=== PATIENT | male | born 1950 | race Caucasian/White ===

== ENCOUNTER 2016-12-31 04:38 | Inpatient (IN) | payer MEDICARE ==
[2016-12-31] VITALS (19 sets, daily range): BP systolic 86–125; BP diastolic 53–87; PULSE 82–106; RESP 18–32; TEMP 98.1–99.3; O2SAT 98–100
[~2016-12-31] VITALS: Ht 193 cm; Wt 59.9 kg
[~2016-12-31 04:38] MED LIST: EPSOM SALTS XX; MUPI2%T TOP
[2016-12-31] MEDS ORDERED: SODIUM CHLOR 0.9% 1000 ML INJ 1,000 ML IV ONE ×4 (04:53→17:45)
[2016-12-31] MEDS ORDERED: SODIUM CHLOR 0.9% 1000 ML INJ 800 ML IV ONE (04:53)
[2016-12-31] MEDS ORDERED: AZITHROMYCIN 250 MG TAB PO ONE (05:15)
[2016-12-31] MEDS ORDERED: cefTRIAXone INJ 1,000 MG in SODIUM CHLORIDE 0.9% INJ 100 ML IV ONE (05:15)
[2016-12-31 05:19] LABS: AUTOMATED NEUTROPHIL # 21.9 TH/MM3 (1.8-7.7); BASOPHIL % 0.2 % (0.0-2.0); HEMATOCRIT 24.3 % (39.0-51.0); HEMO FLAGS DIFF FINAL; LYMPH % 2.6 % (9.0-44.0); LYMPHOCYTE # 0.6 TH/MM3 (1.0-4.8); MEAN CELL VOLUME 92.5 FL (80.0-100.0); MEAN CORPUSCULAR HEMOGLOBIN 32.3 PG (27.0-34.0); MEAN CORPUSCULAR HGB CONC 34.9 % (32.0-36.0); MONO % 4.1 % (0.0-8.0); NEUT % 93.1 % (16.0-70.0); PLATELET COUNT 286 TH/MM3 (150-450); RED BLOOD COUNT 2.63 MIL/MM3 (4.50-5.90); RED CELL DISTRIBUTION WIDTH 13.8 % (11.6-17.2); WHITE BLOOD COUNT 23.6 TH/MM3 (4.0-11.0)
--- NOTE | 2016-12-31 05:28 | PD ---
HPI Chief Complaint: Respiratory Distress Time Seen by Provider: 04:48 Travel History International Travel<30 days: No Contact w/Intl Traveler<30days: No Traveled to known affect area: No History of Present Illness HPI The patient is 66 years old. He comes from the [facility]. Normally his mental status is reported to be a GCS of 14. Today he answers questions slowly yes or no however cannot describe his complaints in much detail. Most of the history of present illness is provided by EMS who obtained it from a nurse somewhat unfamiliar with the patient. Patient has been short of breath for a few days. His mentation is slightly worse than normal. In the ER he complains of pain in the region of the lower back. EMS notes an O2 sat of 89% on room air upon arrival. He is on oxygen 24 7 secondary to COPD. EMS further reports of blood sugar 116 heart rate of 100 and a BP of 122/84. En route to the ER he refused nebs and nasal cannula. His past medical history includes peripheral vascular disease, hyperlipidemia, COPD. PFSH Past Medical History Cardiovascular Problems: Yes (pvd) High Cholesterol: Yes COPD: Yes Diminished Hearing: No Endocrine: No GERD: Yes Genitourinary: No Immune Disorder: No Medical other: Yes (foot drop on the right) Musculoskeletal: No Neurologic: No Psychiatric: No Reproductive: No Respiratory: No Past Surgical History Body Medical Devices: MAY HAVE PINS IN LEFT ANKLE Other Surgery: Yes (HERNIA) Social History Alcohol Use: Yes (3 OR 4 SHOTS A WEEK) Tobacco Use: Yes (3/4 PPD) Substance Use: No Allergies-Medications (Allergen,Severity, Reaction): Coded Allergies: No Known Allergies (Verified Allergy, Mild, 07/23/08) Reported Meds & Prescriptions Reported Meds & Active Scripts Active Reported Office Medication (Miscellaneous Medication) Misc 2 Liter NASAL DAILY PRN Methylprednisolone Sod Succinate Inj (Methylprednisolone Sodium Succinate) 125 Mg Inj 125 Mg IM ONCE Enema Zxgjp-Du-Dna (Sodium Phosphates) 1 Cecile Cecile Citroma Liq (Magnesium Citrate) 300 Ml Liq 300 Ml PO ONCE Qc Gentle Laxative (Bisacodyl) 10 Mg Sup Ativan (Lorazepam) 1 Mg Tab 1 Mg PO DAILY PRN Lorazepam 0.5 Mg Tab 0.5 Mg PO Q6H PRN Albuterol Neb (Albuterol Sulfate) 2.5 Mg/3 Ml Neb 2.5 Mg NEB QID NEB Famotidine 20 Mg Tab 20 Mg PO BID Docusate Sodium 100 Mg Cap 100 Mg PO BID Advair Diskus Inh (Fluticasone-Salmeterol Inh) 100-50 Mcg/Blist Aer 2 Puff INH BID Rinse mouth after use. Rosuvastatin (Rosuvastatin Calcium) 20 Mg Tab 20 Mg PO DAILY Clopidogrel (Clopidogrel Bisulfate) 75 Mg Tab 75 Mg PO DAILY Aspirin Low Dose (Aspirin) 81 Mg Chew 81 Mg CHEW DAILY Amlodipine (Amlodipine Besylate) 5 Mg Tab 5 Mg PO DAILY [Epsom Salts] XX LAST NIGHT Review of Systems ROS Limitations: Clinical Condition Physical Exam Narrative GENERAL: 66-year-old male cachectic mstw-zy-yaewkrci anxiety SKIN: Warm and dry. Ecchymosis about the inferior R thigh. HEAD: Atraumatic. Normocephalic. EYES: Pupils equal and round. No scleral icterus. No injection or drainage. ENT: No nasal bleeding or discharge. Mucous membranes pink and moist. NECK: Trachea midline. No JVD. CARDIOVASCULAR: Regular rate and rhythm. No murmur appreciated. RESPIRATORY: Diminished lung sounds in all sanders. GASTROINTESTINAL: Abdomen soft, non-tender, nondistended. Hepatic and splenic margins not palpable. MUSCULOSKELETAL: No obvious deformities. No clubbing. No cyanosis. No edema. NEUROLOGICAL: Moves all extremities appropriately. Very slow to respond to questions. Alert and oriented to himself. Cranial nerves appear symmetric. PSYCHIATRIC: Flat affect. Data Data Last Documented VS Vital Signs Date Time Temp Pulse Resp B/P Pulse Ox O2 Delivery O2 Flow Rate FiO2 12/31/16 05:01 94 Nasal Cannula 3 12/31/16 04:44 105 26 123/59 Orders Complete Blood Count With Diff (12/31/16 04:53) Comprehensive Metabolic Panel (12/31/16 04:53) Prothrombin Time / Inr (Pt) (12/31/16 04:53) Act Partial Throm Time (Ptt) (12/31/16 04:53) Lactic Acid Sepsis Protocol (12/31/16 04:53) Urinalysis - C+S If Indicated (12/31/16 04:53) Blood Culture (12/31/16 04:53) Chest, Single Ap (12/31/16 04:53) Blood Glucose (12/31/16 04:53) Ecg Monitoring (12/31/16 04:53) Iv Access Insert/Monitor (12/31/16 04:53) Oximetry (12/31/16 04:53) Oxygen Administration (12/31/16 04:53) Sodium Chlor 0.9% 1000 Ml Inj (Ns 1000 M (12/31/16 04:53) Sodium Chlor 0.9% 1000 Ml Inj (Ns 1000 M (12/31/16 04:53) Ceftriaxone Inj (Rocephin Inj) (12/31/16 05:15) Azithromycin (Zithromax) (12/31/16 05:15) Warming [place] / Warming Syst PRN (12/31/16 05:06) Arterial Blood Gas (Abg) (12/31/16 ) Us Leg Venous Doppler Bilat (12/31/16 ) Sodium Chlor 0.9% 1000 Ml Inj (Ns 1000 M (12/31/16 06:00) Urine Culture (12/31/16 06:00) Resp Bipap / Cpap Non Invas Vt (12/31/16 06:30) Insert Temp Sensing Gonzalez Cath (12/31/16 06:41) Piperacil-Tazo 4.5 Gm Premix (Zosyn 4.5 (12/31/16 07:00) Admit Order (Ed Use Only) (12/31/16 06:52) Labs Laboratory Tests Test 12/31/16 12/31/16 12/31/16 05:05 06:00 06:03 White Blood Count 23.6 TH/MM3 Red Blood Count 2.63 MIL/MM3 Hemoglobin 8.5 GM/DL Hematocrit 24.3 % Mean Corpuscular Volume 92.5 FL Mean Corpuscular Hemoglobin 32.3 PG Mean Corpuscular Hemoglobin 34.9 % Concent Red Cell Distribution Width 13.8 % Platelet Count 286 TH/MM3 Mean Platelet Volume 7.8 FL Neutrophils (%) (Auto) 93.1 % Lymphocytes (%) (Auto) 2.6 % Monocytes (%) (Auto) 4.1 % Eosinophils (%) (Auto) 0.0 % Basophils (%) (Auto) 0.2 % Neutrophils # (Auto) 21.9 TH/MM3 Lymphocytes # (Auto) 0.6 TH/MM3 Monocytes # (Auto) 1.0 TH/MM3 Eosinophils # (Auto) 0.0 TH/MM3 Basophils # (Auto) 0.0 TH/MM3 CBC Comment DIFF FINAL Differential Comment Prothrombin Time 10.0 SEC Prothromb Time International 0.9 RATIO Ratio Activated Partial 27.0 SEC Thromboplast Time Sodium Level 130 MEQ/L Potassium Level 4.5 MEQ/L Chloride Level 91 MEQ/L Carbon Dioxide Level 35.0 MEQ/L Anion Gap 4 MEQ/L Blood Urea Nitrogen 13 MG/DL Creatinine 0.38 MG/DL Estimat Glomerular Filtration 229 ML/MIN Rate Random Glucose 120 MG/DL Lactic Acid Level 1.1 mmol/L Calcium Level 8.9 MG/DL Total Bilirubin 1.4 MG/DL Aspartate Amino Transf 33 U/L (AST/SGOT) Alanine Aminotransferase 48 U/L (ALT/SGPT) Alkaline Phosphatase 57 U/L Total Protein 7.5 GM/DL Albumin 3.2 GM/DL Urine Color YELLOW Urine Turbidity HAZY Urine pH 5.5 Urine Specific [place] 1.015 Urine Protein TRACE mg/dL Urine Glucose (UA) NEG mg/dL Urine Ketones NEG mg/dL Urine Occult Blood MOD Urine Nitrite NEG Urine Bilirubin NEG Urine Urobilinogen LESS THAN 2.0 MG/DL Urine Leukocyte Esterase NEG Urine RBC 9 /hpf Urine WBC 2 /hpf Urine Amorphous Sediment RARE Urine Bacteria RARE /hpf Urine Mucus FEW /lpf Microscopic Urinalysis Comment CATH-CULTURE IND Blood Gas Puncture Site RT RADIAL Blood Gas Patient Temperature 98.6 Blood Gas HCO3 30 mmol/L Blood Gas Base Excess 3.6 mmol/L Blood Gas Oxygen Saturation 92 % Arterial Blood pH 7.26 Arterial Blood Partial 69 mmHg Pressure CO2 Arterial Blood Partial 81 mmHG Pressure O2 Arterial Blood Oxygen Content 11.4 Vol % Arterial Blood 2.5 % Carboxyhemoglobin Arterial Blood Methemoglobin 1.5 % Blood Gas Hemoglobin 8.8 G/DL Oxygen Delivery Device NASAL CANNULA Blood Gas Liter Flow 3 L/M MDM Medical Decision Making Medical Screen Exam Complete: Yes Emergency Medical Condition: Yes Medical Record Reviewed: Yes Differential Diagnosis Pneumonia, COPD exacerbation, anemia, electrolyte imbalance, sepsis, severe sepsis Narrative Course CBC & BMP Diagram 12/31/16 05:05 Neutrophils 93% Lactic acid 1.1 LFTs essentially unremarkable AB.26 / 69 / 30 BE 3.6, ABG pO81 EKG: sinus rate 102, normal axis, normal interals Last 24 hours Impressions Chest X-Ray 12/31/16 6152 Signed Impressions: Service Date/Time: December 05:15 - CONCLUSION: Left base consolidation. Luis Armando Alanis MD Antibiotics initiated. 2 L crystalloid started. Warming blanket started. Gonzalez placed. Patient has a pneumonia. There is a respiratory acidosis with a PCO2 of 69 the ABG PO2 was 81 on 3 L nasal cannula. Admission to supervisor finishing department service. D/w Dr Durán. BiPAP started. Critical Care Narrative Aggregate critical care time was 35 minutes. Time to perform other separately billable procedures was not included in the critical care time. My time did not include minutes spent treating any other patients simultaneously or on activities that did not directly contribute to the patient's treatment. The services I provided to this patient were to treat and/or prevent clinically significant deterioration that could result in: Septic shock, multiorgan failure, respiratory arrest I provided critical care services requiring my management, as noted below: Chart data review, documentation time, medication orders and management, vital sign assessments/reviewing monitor data, ordering and reviewing lab tests, ordering and interpreting/reviewing x-rays and diagnostic studies, care of the patient and discussion of the patient with the admitting physicians. Sepsis Criteria SIRS Criteria (2 or more): Temp > 100.9 or < 96.8, Heart rate over 90, WBC > 99080, < 4000 or > 10% bands Sepsis Criteria (SIRS+source): Infect source susp/known Diagnosis Primary Impression: Sepsis due to pneumonia Additional Impressions: Anemia Qualified Code: D64.89 - Anemia due to other cause, not classified Hypercarbia Admitting Information Admitting Physician Requests: Admit Иван Berg MD Dec 31, 2016 05:27
[2016-12-31 05:30] LABS: INTERNATIONAL NORMALIZED RATIO 0.9 RATIO
[2016-12-31 05:33] LABS: ANION GAP 4 MEQ/L (5-15); AST (GOT) 33 U/L (15-37); BLOOD UREA NITROGEN 13 MG/DL (7-18); CHLORIDE 91 MEQ/L (98-107); GLOMERULAR FILTRATION RATE 229 ML/MIN (>89); POTASSIUM 4.5 MEQ/L (3.5-5.1); SODIUM (NA) 130 MEQ/L (136-145)
[2016-12-31 05:36] LABS: ALKALINE PHOSPHATASE 57 U/L (45-117); ALT (GPT) 48 U/L (12-78); TOTAL BILIRUBIN ADULT 1.4 MG/DL (0.2-1.0)
[2016-12-31] MEDS ORDERED: METH125I2 IM (05:43)
[2016-12-31] MEDS ORDERED: ASPI81CH37 CHEW (05:43)
[2016-12-31] MEDS ORDERED: ALBU0.08 NEB (05:43)
[2016-12-31] MEDS ORDERED: AMLO5TAB2 PO (05:43)
[2016-12-31] MEDS ORDERED: LORA-373 PO (05:43)
[2016-12-31] MEDS ORDERED: DOCU100C PO (05:43)
[2016-12-31] MEDS ORDERED: LORA-474 PO (05:43)
[2016-12-31] MEDS ORDERED: FAMO20TA2 PO (05:43)
[2016-12-31] MEDS ORDERED: SODIENE9 (05:43)
[2016-12-31] MEDS ORDERED: CITRSOL4 PO (05:43)
[2016-12-31] MEDS ORDERED: ROSU1TAB8 PO (05:43)
[2016-12-31] MEDS ORDERED: ADVA100A INH (05:43)
[2016-12-31] MEDS ORDERED: [UNRECOGNIZED DRUG - OTHER] (05:43)
[2016-12-31] MEDS ORDERED: CLOP75TA PO (05:43)
[2016-12-31] MEDS ORDERED: OFFICE MEDICATION NASAL (05:44)
--- NOTE | 2016-12-31 05:56 | RADRPT ---
EXAM DATE/TIME: 12/31/2016 05:15 [facility] COMPARISON: No previous studies available for comparison. INDICATIONS : Shortness of breath. MEDICAL HISTORY : None. SURGICAL HISTORY : None. ENCOUNTER: Initial ACUITY: 1 day PAIN SCORE: Non-responsive. LOCATION: Bilateral chest FINDINGS: The heart size is normal. There is increased density at the left base. The right lung is clear. CONCLUSION: Left base consolidation. Luis Armando Alanis MD on December 31, 2016 at 5:54 Board Certified Radiologist. This report was verified electronically.
[2016-12-31 06:14] LABS: BACTERIA, URINE RARE /hpf; BLOOD, URINE MOD (NEG); COMMENT (UR) CATH-CULTURE IND; CULTURE IF INDICATED CATH CULTURE IND; GLUCOSE,URINE NEG (NEG); KETONE, URINE NEG (NEG); MUCUS URINE FEW /lpf (OCC); NITRITE,URINE NEG (NEG); PH, URINE 5.5 (5.0-8.5); URINE COLOR YELLOW (YELLW/STRAW)
[2016-12-31 06:16] LABS: BLOOD GAS BASE EXCESS 3.6 mmol/L (-2-2); BLOOD GAS CARBOXYHEMOGLOBIN 2.5 % (0-4); BLOOD GAS HCO3 30 mmol/L (22-26); BLOOD GAS METHEMOGLOBIN 1.5 % (0-2); BLOOD GAS O2 HGB SATURATION 92 % (90-100); BLOOD GAS OXYGEN CONTENT 11.4 Vol % (12.0-20.0); BLOOD GAS PCO2 69 mmHg (38-42); BLOOD GAS PO2 81 mmHG (61-120); BLOOD GAS TOTAL HGB 8.8 G/DL (12.0-16.0); TEMP CORR TO 98.6
[2016-12-31 06:17] LABS: CRITICAL VALUE YES; DRAW SITE RT RADIAL; LITER FLOW 3 L/M; NUMBER OF ARTERIAL PUNCTURES 2; OXYGEN DEVICE NASAL CANNULA; STAT YES; ULNAR PULSE PRESENT
[2016-12-31] MEDS ORDERED: PIPERACIL-TAZO 4.5 GM PREMIX 100 ML IV ONE (07:00)
--- NOTE | 2016-12-31 07:21 | HHI.HP ---
[facility] Service Critical Care Medicine Primary Care Physician Ryan Madsen MD Admission Diagnosis Sepsis (PNA), Hypercarbia, Anemia Diagnosis: (1) Anemia Diagnosis: Principal (2) Hypercarbia Diagnosis: Principal (3) Sepsis due to pneumonia Diagnosis: Principal (4) HCAP (healthcare-associated pneumonia) Diagnosis: Principal (5) COPD (chronic obstructive pulmonary disease) Diagnosis: Principal (6) Hypertension Diagnosis: Principal (7) Dyslipidemia Diagnosis: Principal (8) MCFP prescription benzodiazepine use Diagnosis: Principal (9) Peripheral vascular disease Diagnosis: Principal (10) Gastroesophageal reflux disease Diagnosis: Principal (11) Normocytic anemia Diagnosis: Principal (12) Hyponatremia Diagnosis: Principal (13) Hyperglycemia Diagnosis: Principal (14) Leukocytosis Diagnosis: Principal (15) Constipation Diagnosis: Principal (16) Hypothermia Diagnosis: Principal Chief Complaint: Shortness of breath/transfer from [facility] Travel History International Travel<30 Days: No Contact w/Intl Traveler <30 Da: No Traveled to Known Affected Are: No Sepsis Criteria SIRS Criteria (2 or more): RR > 20 or PaCO2 < 32, WBC > 98082, < 4000 or > 10 % bands Sepsis Criteria (SIRS+source): Infect source susp/known History of Present Illness 66 years old male. Date of admission 12/31/2016. Resident of [facility] nursing [facility]. Past medical history includes COPD/oxygen dependent, hypertension, peripheral vascular disease and dyslipidemia. He presents to [facility] with a history of shortness of breath times several days and decreasing mental status. Per ED physician, his mentation is slightly worse than normal. EMS further reports of blood sugar 116 heart rate of 100 and a BP of 122/84. En route to the ER he refused nebs and nasal cannula. At this facility, retaining CO2. Chest x-ray reveals left lower lobe infiltrate. Started on nasal cannula 3 L. Received bronchodilator therapy along with 125 mg Solu-Medrol 1. Currently on Sanjeev hugger Review of Systems Constitutional: COMPLAINS OF: Fatigue, Fever, DENIES: Weight gain, Weight loss Endocrine: DENIES: Polydipsia, Polyuria Eyes: DENIES: Blurred vision Ears, nose, mouth, throat: DENIES: Tinnitus Respiratory: COMPLAINS OF: Cough, Sputum production, Shortness of breath, DENIES: Apneas Cardiovascular: DENIES: Chest pain, Lower Extremity Edema Gastrointestinal: DENIES: Abdominal pain Genitourinary: DENIES: Urgency Musculoskeletal: COMPLAINS OF: Back pain, DENIES: Joint pain Integumentary: DENIES: Abnormal pigmentation Hematologic/lymphatic: COMPLAINS OF: Bruising Immunologic/allergic: DENIES: Eczema Neurologic: DENIES: Abnormal gait Psychiatric: COMPLAINS OF: Confusion Past Family Social History Allergies: Coded Allergies: No Known Allergies (Verified Allergy, Mild, 07/23/08) Past Medical History Oxygen dependent COPD Hypertension Dyslipidemia Peripheral vascular disease Chronic benzodiazepine use Constipation Past Surgical History Left finger abscess I&D Hernia repair Left ankle Reported Medications Active Reported Office Medication (Miscellaneous Medication) Misc 2 Liter NASAL DAILY PRN Methylprednisolone Sod Succinate Inj (Methylprednisolone Sodium Succinate) 125 Mg Inj 125 Mg IM ONCE Enema Cegda-Kw-Mcg (Sodium Phosphates) 1 Cecile Cecile Citroma Liq (Magnesium Citrate) 300 Ml Liq 300 Ml PO ONCE Qc Gentle Laxative (Bisacodyl) 10 Mg Sup Ativan (Lorazepam) 1 Mg Tab 1 Mg PO DAILY PRN Lorazepam 0.5 Mg Tab 0.5 Mg PO Q6H PRN Albuterol Neb (Albuterol Sulfate) 2.5 Mg/3 Ml Neb 2.5 Mg NEB QID NEB Famotidine 20 Mg Tab 20 Mg PO BID Docusate Sodium 100 Mg Cap 100 Mg PO BID Advair Diskus Inh (Fluticasone-Salmeterol Inh) 100-50 Mcg/Blist Aer 2 Puff INH BID Rinse mouth after use. Rosuvastatin (Rosuvastatin Calcium) 20 Mg Tab 20 Mg PO DAILY Clopidogrel (Clopidogrel Bisulfate) 75 Mg Tab 75 Mg PO DAILY Aspirin Low Dose (Aspirin) 81 Mg Chew 81 Mg CHEW DAILY Amlodipine (Amlodipine Besylate) 5 Mg Tab 5 Mg PO DAILY [Epsom Salts] XX LAST NIGHT Active Ordered Medications Reviewed in EMR Family History Noncontributory Social History Prior tobacco use three quarters packs per day. Drinks 10 cups of coffee daily. 3-4 shots of alcohol weekly. No IV drug use documented Physical Exam Vital Signs Vital Signs Date Time Temp Pulse Resp B/P Pulse Ox O2 Delivery O2 Flow Rate FiO2 12/31/16 05:01 94 Nasal Cannula 3 12/31/16 04:44 105 26 123/59 98 Physical Exam GENERAL: 66-year-old male, disheveled currently resting in bed in no acute distress SKIN: Warm and dry. No rash HEAD: Atraumatic. Normocephalic. EYES: Pupils equal and round around 3 mm bilaterally and reactive. No scleral icterus. No injection or drainage. ENT: No nasal bleeding or discharge. Mucous membranes pink and moist. NECK: Trachea midline. No JVD. CARDIOVASCULAR: Regular rate and rhythm. S1, S2. No S4. Without murmur RESPIRATORY: Expiratory wheeze appreciated. Diminished breath sounds in the bases left greater than right. Breath sounds equal bilaterally. GASTROINTESTINAL: Abdomen soft, non-tender, nondistended. Active bowel sounds MUSCULOSKELETAL: Extremities without new skin peripheral edema. No obvious deformities. NEUROLOGICAL: Awake and alert but falls asleep easily. No obvious cranial nerve deficits. Motor grossly within normal limits. Five out of 5 muscle strength in the arms and legs. Speech is slow Laboratory Laboratory Tests Test 12/31/16 12/31/16 12/31/16 05:05 06:00 06:03 White Blood Count 23.6 Red Blood Count 2.63 Hemoglobin 8.5 Hematocrit 24.3 Mean Corpuscular Volume 92.5 Mean Corpuscular Hemoglobin 32.3 Mean Corpuscular Hemoglobin 34.9 Concent Red Cell Distribution Width 13.8 Platelet Count 286 Mean Platelet Volume 7.8 Neutrophils (%) (Auto) 93.1 Lymphocytes (%) (Auto) 2.6 Monocytes (%) (Auto) 4.1 Eosinophils (%) (Auto) 0.0 Basophils (%) (Auto) 0.2 Neutrophils # (Auto) 21.9 Lymphocytes # (Auto) 0.6 Monocytes # (Auto) 1.0 Eosinophils # (Auto) 0.0 Basophils # (Auto) 0.0 CBC Comment DIFF FINAL Differential Comment Prothrombin Time 10.0 Prothromb Time International 0.9 Ratio Activated Partial 27.0 Thromboplast Time Sodium Level 130 Potassium Level 4.5 Chloride Level 91 Carbon Dioxide Level 35.0 Anion Gap 4 Blood Urea Nitrogen 13 Creatinine 0.38 Estimat Glomerular Filtration 229 Rate Random Glucose 120 Lactic Acid Level 1.1 Calcium Level 8.9 Total Bilirubin 1.4 Aspartate Amino Transf 33 (AST/SGOT) Alanine Aminotransferase 48 (ALT/SGPT) Alkaline Phosphatase 57 Total Protein 7.5 Albumin 3.2 Urine Color YELLOW Urine Turbidity HAZY Urine pH 5.5 Urine Specific [place] 1.015 Urine Protein TRACE Urine Glucose (UA) NEG Urine Ketones NEG Urine Occult Blood MOD Urine Nitrite NEG Urine Bilirubin NEG Urine Urobilinogen LESS THAN 2.0 Urine Leukocyte Esterase NEG Urine RBC 9 Urine WBC 2 Urine Amorphous Sediment RARE Urine Bacteria RARE Urine Mucus FEW Microscopic Urinalysis Comment CATH-CULTURE IND Blood Gas Puncture Site RT RADIAL Blood Gas Patient Temperature 98.6 Blood Gas HCO3 30 Blood Gas Base Excess 3.6 Blood Gas Oxygen Saturation 92 Arterial Blood pH 7.26 Arterial Blood Partial 69 Pressure CO2 Arterial Blood Partial 81 Pressure O2 Arterial Blood Oxygen Content 11.4 Arterial Blood 2.5 Carboxyhemoglobin Arterial Blood Methemoglobin 1.5 Blood Gas Hemoglobin 8.8 Oxygen Delivery Device NASAL CANNULA Blood Gas Liter Flow 3 Date/Time Procedure Status Source Growth 12/31/16 06:00 Urine Culture Received Urine Catheterized Urine Pending 12/31/16 05:05 Aerobic Blood Culture Received Blood Peripheral Pending 12/31/16 05:05 Anaerobic Blood Culture Received Blood Peripheral Pending Result Diagram: 12/31/16 0505 12/31/16 0505 Imaging Last Impressions Chest X-Ray 12/31/16 0453 Signed Impressions: Service Date/Time: December 05:15 - CONCLUSION: Left base consolidation. Luis Armando Alanis MD Assessment and Plan Assessment and Plan Neuro/Psych: Chronic benzodiazepine use Acute toxic metabolic encephalopathy likely secondary to underlying illness Patient is on Ativan to 0.5 mg every 6 hours as needed for anxiety. Acetaminophen for fever [place]/morphine for pain management. CV: Peripheral vascular disease Hypertension Dyslipidemia Currently on normal saline at 84 cc an hour. Hemodynamically stable. On Norvasc 5 mill grams by mouth daily at home. This is been held. Resume when clinically indicated On Crestor 20 mg by mouth daily. This has been resumed. Follow-up on an EKG/CPK and troponin Resp: Acute on chronic hypoxemic Chronic respiratory failure COPD/O2 dependent Left lower lobe infiltrate BiPAP initially due to CO2 retention with respiratory acidosis. Wean to nasal cannula to maintain saturations greater than equal to 92% Bronchodilator therapy every 4 hours and as needed Continue Advair 100/50 one inhalation twice a day Solu-Medrol 40 mg IV every 8 hours See ID for antibiotics Follow-up chest x-ray in a.m. GI: Chronic constipation Gastroesophageal reflux disease Advance diet as tolerated. Protonix for GI prophylaxis. On Pepcid 20 mg twice a day at nursing facility Colace/as needed Senokot for bowel regimen : Gonzalez will be placed for accurate I's and O's in a critically ill patient Endo: Sliding-scale insulin with Accu-Cheks to maintain euglycemia. Low protocol. Before meals and at bedtime. Renal: Creatinine currently within normal limits. Accurate I's and output Monitor urine output Heme: Leukocytosis Normocytic anemia Monitor CBC daily. Monitor trends. No indications for transfusion of blood products at this time. ID: Healthcare associated pneumonia Receive Zosyn, Rocephin and azithromycin the ED. Will schedule vancomycin cefepime and Zithromax day #1 Pertinent cultures Blood cultures 2, UA, urine Legionella and pneumococcal antigens and influenza all pending MSK: Low back pain PT evaluate and treat FEN: Hyponatremia Currently on normal saline at 84 cc an hour. Replace electrolytes as clinically indicated Access - Utilize peripheral IV. Central line if indicated Prophylaxis - GI - Protonix - DVT - SCD/heparin Critical Care: The total critical care time was 55 minutes. Time to perform other separately billable procedures was not included in the critical care time. Code Status Full code Discussed Condition With Dr. Berg/ED physician. Patient. Care plan discussed and all questions answered. Problem Qualifiers (1) Anemia: Qualified Code: D64.89 - Anemia due to other cause, not classified (2) COPD (chronic obstructive pulmonary disease): Qualified Code: J43.9 - Pulmonary emphysema, unspecified emphysema type (3) Hypertension: Qualified Code: I10 - Essential hypertension (4) Gastroesophageal reflux disease: Qualified Code: K21.9 - Gastroesophageal reflux disease, esophagitis presence not specified (5) Leukocytosis: Qualified Code: D72.829 - Leukocytosis, unspecified type (6) Constipation: Qualified Code: K59.00 - Constipation, unspecified constipation type (7) Hypothermia: Qualified Code: T68.XXXA - Hypothermia, initial encounter Se Jiang MD Dec 31, 2016 07:21
[2016-12-31] MEDS ORDERED: CHLORHEXIDINE GLUCONATE 2 % 1 PACK (2 CLOTHS) TOP PRN (07:30)
[2016-12-31] MEDS ORDERED: MORPHINE SULFATE 4 MG/ML INJ IV PRN (07:30)
[2016-12-31] MEDS ORDERED: DEXTROSE 50% IN WATER 50 ML VIAL(D50) IV PUSH PRN (07:30)
[2016-12-31] MEDS ORDERED: LORazepam 0.5 MG TAB PO PRN (07:30)
[2016-12-31] MEDS ORDERED: POTASSIUM PHOSPHATE MONOBASIC 500 MG TAB PO PRN (07:30)
[2016-12-31] MEDS ORDERED: POTASSIUM CHLOR 20 MEQ PREMIX 100 ML IV PRN ×2 (07:30)
[2016-12-31] MEDS ORDERED: POTASSIUM PHOSPHATE INJ 30 MMOL in SODIUM CHLOR 0.9% 250 ML INJ 250 ML IV PRN (07:30)
[2016-12-31] MEDS ORDERED: MAGNESIUM OXIDE 400 MG TAB PO PRN (07:30)
[2016-12-31] MEDS ORDERED: ACETAMINOPHEN 325 MG TAB PO PRN (07:30)
[2016-12-31] MEDS ORDERED: SODIUM CHLORIDE 0.9% FLUSH 5 ML FLUSH IV FLUSH PRN (07:30)
[2016-12-31] MEDS ORDERED: Vancomycin Consult Pharmacy 1 EA XX SCH (07:30)
[2016-12-31] MEDS ORDERED: MAGNESIUM SULFATE INJ 4 GM in SODIUM CHLORIDE 0.9% INJ 92 ML IV PRN (07:30)
[2016-12-31] MEDS ORDERED: POTASSIUM PHOSPHATE MONOBASIC 500 MG TAB PO/TUBE PRN (07:30)
[2016-12-31] MEDS ORDERED: SENNOSIDES 8.6 MG TAB PO PRN (07:30)
[2016-12-31] MEDS ORDERED: MAGNESIUM SULFATE INJ 2 GM in SODIUM CHLORIDE 0.9% INJ 96 ML IV PRN (07:30)
[2016-12-31] MEDS ORDERED: GLUCAGON 1 MG/ML VIAL OTHER PRN (07:30)
[2016-12-31] MEDS ORDERED: POTASSIUM CHLOR 40 MEQ PREMIX 100 ML IV-CENTRAL PRN ×2 (07:30)
[2016-12-31] MEDS ORDERED: SODIUM PHOSPHATE INJ 30 MMOL in SODIUM CHLOR 0.9% 250 ML INJ 240 ML IV PRN (07:30)
[2016-12-31] MEDS ORDERED: ONDANSETRON HCL 4 MG/2 ML VIAL IV PRN (07:30)
[2016-12-31] MEDS ORDERED: ACETAMINOPHEN/HYDROcodone 325 MG/5 MG TAB PO PRN (07:30)
[2016-12-31] MEDS ORDERED: POTASSIUM CL 40 MEQ/30 ML LIQ UDC PO/TUBE PRN ×2 (07:30)
[2016-12-31] MEDS ORDERED: MISCELLANEOUS NURSING INFORMATION XX SCH (07:30)
[2016-12-31] MEDS: RESP: ALBUTEROL 2.5 MG/IPRATROPIUM 0.5 MG NEB (SCH) INH ×5 (07:39→23:43)
[2016-12-31] MEDS ORDERED: VANCOMYCIN 1,000 MG/NS 250 ML IV ONE ×2 (08:00)
[2016-12-31] MEDS: CLOPIDOGREL 75 MG TAB PO SCH (09:00)
[2016-12-31] MEDS: DOCUSATE SODIUM 100 MG CAP PO SCH ×2 (09:00→21:01)
[2016-12-31] MEDS: ASPIRIN 81 MG CHEW TAB CHEW SCH (09:00)
[2016-12-31] MEDS ORDERED: PANTOPRAZOLE SODIUM 40 MG VIAL IV SCH (09:00)
[2016-12-31] MEDS: ARTIFICIAL TEARS OPTH SOLN 15 ML BTL EACH EYE SCH ×2 (09:00→18:00)
--- NOTE | 2016-12-31 09:22 | RADRPT ---
EXAM DATE/TIME: 12/31/2016 08:04 [facility] COMPARISON: No previous studies available for comparison. INDICATIONS : Thrombosis. MEDICAL HISTORY : Gastroesophageal reflux disease. Hypercholesterolemia. Chronic obstructive pulmonary disease. PVD. SURGICAL HISTORY : Hernia. Ankle surgery. ENCOUNTER: Initial ACUITY: 1 day PAIN SCORE: Non-responsive LOCATION: Bilateral legs. TECHNIQUE: Venous ultrasound of the left and right leg was performed from the inguinal ligament to the proximal calf. Real-time, color Doppler and spectral tracing, compression and augmentation techniques were us ed. FINDINGS: RIGHT LEG: There is normal compressibility of the deep venous system from the inguinal region to the proximal ca lf. No echogenic clot is seen in the lumen of the common femoral, femoral, popliteal, and posterior tibial veins. There is a normal response of the venous system to proximal and distal augmentation an d respiration. LEFT LEG: There is normal compressibility of the deep venous system from the inguinal region to the proximal ca lf. No echogenic clot is seen in the lumen of the common femoral, femoral, popliteal, and posterior tibial veins. There is a normal response of the venous system to proximal and distal augmentation an d respiration. CONCLUSION: The study is negative for deep venous thrombosis bilateral lower extremity. Chandu Joe MD on December 31, 2016 at 9:20 Board Certified Radiologist. This report was verified electronically.
[2016-12-31] MEDS: BUDESONIDE-FORMOTEROL 160/4.5 MCG INHALER INH SCH ×2 (10:00→21:01)
[2016-12-31] MEDS: ATORVASTATIN 40 MG TAB PO SCH (10:00)
[2016-12-31] MEDS: SODIUM CHLOR 0.9% 1000 ML INJ 1,000 ML IV SCH ×2 (10:50→19:55)
[2016-12-31] MEDS: INSULIN NovoLIN REGULAR SUPPLEMENTAL SCALE SQ SCH ×3 (11:00→20:56)
[2016-12-31] MEDS: SODIUM CHLORIDE 0.9% FLUSH 5 ML FLUSH IV FLUSH SCH ×2 (11:37→21:01)
[2016-12-31] MEDS: HEPARIN SODIUM - SQ 10,000 UNITS/ML VIAL SQ SCH ×2 (11:37→20:56)
[2016-12-31] MEDS: CEFEPIME INJ 2,000 MG in SODIUM CHLORIDE 0.9% INJ 100 ML IV SCH ×2 (12:05→17:54)
[2016-12-31 14:20] LABS: MAGNESIUM 2.3 MG/DL (1.5-2.5)
[2016-12-31 14:20] LABS: INDIRECT BILIRUBIN 0.9 MG/DL (0.0-0.8); TOTAL BILIRUBIN ADULT 1.2 MG/DL (0.2-1.0)
[2016-12-31] MEDS ORDERED: ALBUMIN HUMAN 25% 25 GM/100 ML BAGP IV ONE (17:15)
[2016-12-31 17:32] LABS: BLOOD GAS CARBOXYHEMOGLOBIN 1.9 % (0-4); BLOOD GAS HCO3 29 mmol/L (22-26); BLOOD GAS METHEMOGLOBIN 1.5 % (0-2); BLOOD GAS O2 HGB SATURATION 94 % (90-100); BLOOD GAS OXYGEN CONTENT 8.7 Vol % (12.0-20.0); BLOOD GAS PCO2 49 mmHg (38-42); BLOOD GAS PO2 90 mmHg (61-120); BLOOD GAS TOTAL HGB 6.5 G/DL (12.0-16.0); CRITICAL VALUE YES; TEMP CORR TO 98.6
[2016-12-31 17:33] LABS: DRAW SITE LT RADIAL; FIO2 30 %; NUMBER OF ARTERIAL PUNCTURES 1; OXYGEN DEVICE BiPAP; STAT NO; ULNAR PULSE PRESENT; VENT SETTINGS IPAP12/EPAP6
[2016-12-31 18:20] LABS: REVIEW FLAG FINAL
[2016-12-31 18:21] LABS: HEMATOCRIT 19.8 % (39.0-51.0)
--- NOTE | 2016-12-31 19:29 | EKG ---
Date Performed: 12/31/2016 Time Performed: 04:58:09 PTAGE: 66 years EKG: SINUS TACHYCARDIA RIGHT ATRIAL ENLARGEMENT MINIMAL VOLTAGE CRITERIA FOR LVH, CONSIDER MARY BETH L VARIANT ABNORMAL ECG NO PREVIOUS TRACING DOCTOR: Wild Berg Interpretating Date/Time 12/31/2016 19:28:43
[2016-12-31] MEDS: PANTOPRAZOLE SODIUM 40 MG VIAL IV SCH (20:56)
[2016-12-31] MEDS: methylPREDNISolone SOD SUCC 40 MG/1 ML VIAL IV PUSH SCH (20:58)
[2016-12-31] MEDS: VANCOMYCIN 1,000 MG/NS 250 ML IV SCH ×2 (22:20)
[2017-01-01] VITALS (16 sets, daily range): BP systolic 97–109; BP diastolic 53–59; PULSE 71–98; RESP 20–26; TEMP 97.9–98.4; O2SAT 96–100
[2017-01-01] MEDS: CEFEPIME INJ 2,000 MG in SODIUM CHLORIDE 0.9% INJ 100 ML IV SCH ×3 (02:23→16:06)
[2017-01-01 02:53] LABS: HEMATOCRIT 21.2 % (39.0-51.0); REVIEW FLAG FINAL
[2017-01-01 05:14] LABS: BASOPHIL % 0.2 % (0.0-2.0); LYMPH % 3.6 % (9.0-44.0); LYMPHOCYTE # 0.4 TH/MM3 (1.0-4.8); MEAN CELL VOLUME 92.7 FL (80.0-100.0); MEAN CORPUSCULAR HEMOGLOBIN 32.1 PG (27.0-34.0); MEAN CORPUSCULAR HGB CONC 34.6 % (32.0-36.0); MONO % 3.4 % (0.0-8.0); NEUT % 92.8 % (16.0-70.0); PLATELET COUNT 180 TH/MM3 (150-450); RED BLOOD COUNT 2.17 MIL/MM3 (4.50-5.90); RED CELL DISTRIBUTION WIDTH 14.2 % (11.6-17.2); WHITE BLOOD COUNT 10.7 TH/MM3 (4.0-11.0)
[2017-01-01] MEDS: RESP: ALBUTEROL 2.5 MG/IPRATROPIUM 0.5 MG NEB (SCH) INH ×6 (05:17→23:23)
[2017-01-01 05:21] LABS: APTT (PATIENT) 40.5 SEC (24.3-30.1); PROTHROMBIN TIME - PATIENT 11.4 SEC (9.8-11.6)
[2017-01-01] MEDS: methylPREDNISolone SOD SUCC 40 MG/1 ML VIAL IV PUSH SCH ×3 (05:33→20:20)
[2017-01-01] MEDS: AZITHROMYCIN INJ 500 MG in SODIUM CHLOR 0.9% 250 ML INJ 250 ML IV SCH (05:33)
[2017-01-01] MEDS: CHLORHEXIDINE GLUCONATE 2 % 1 PACK (2 CLOTHS) TOP SCH (05:34)
[2017-01-01 06:00] LABS: HEMO FLAGS DIFF FINAL
[2017-01-01 06:03] LABS: HEMATOCRIT 20.1 % (39.0-51.0)
[2017-01-01] MEDS: INSULIN NovoLIN REGULAR SUPPLEMENTAL SCALE SQ SCH ×4 (07:00→20:39)
[2017-01-01] MEDS: SODIUM CHLOR 0.9% 1000 ML INJ 1,000 ML IV SCH ×2 (07:45→22:07)
[2017-01-01] MEDS: BUDESONIDE-FORMOTEROL 160/4.5 MCG INHALER INH SCH ×2 (09:00→20:21)
[2017-01-01] MEDS: SODIUM CHLORIDE 0.9% FLUSH 5 ML FLUSH IV FLUSH SCH ×2 (09:00→20:21)
[2017-01-01] MEDS: ASPIRIN 81 MG CHEW TAB CHEW SCH (09:00)
[2017-01-01] MEDS: DOCUSATE SODIUM 100 MG CAP PO SCH ×2 (09:01→20:20)
[2017-01-01] MEDS: ATORVASTATIN 40 MG TAB PO SCH (09:01)
[2017-01-01] MEDS: PANTOPRAZOLE SODIUM 40 MG VIAL IV SCH ×2 (09:01→20:21)
[2017-01-01] MEDS: CLOPIDOGREL 75 MG TAB PO SCH (09:02)
[2017-01-01 09:20] LABS: RETIC % 6.1 % (0.4-3.0)
[2017-01-01 09:25] LABS: REVIEW FLAG FINAL
[2017-01-01] MEDS: ARTIFICIAL TEARS OPTH SOLN 15 ML BTL EACH EYE SCH ×3 (09:48→18:30)
[2017-01-01 10:09] LABS: BICARBONATE 29.9 MEQ/L (21.0-32.0); POTASSIUM 3.8 MEQ/L (3.5-5.1)
--- NOTE | 2017-01-01 10:39 | HHI.CCPN ---
Subjective Remarks/Hospital Course 66 years old male. Date of admission 12/31/2016. Resident of [facility]. Past medical history includes COPD/oxygen dependent, hypertension, peripheral vascular disease and dyslipidemia. He presents to [facility] with a history of shortness of breath times several days and decreasing mental status. Per ED physician, his mentation is slightly worse than normal. EMS further reports of blood sugar 116 heart rate of 100 and a BP of 122/84. En route to the ER he refused nebs and nasal cannula. At this facility, retaining CO2. Chest x-ray reveals left lower lobe infiltrate. Started on nasal cannula 3 L. Received bronchodilator therapy along with 125 mg Solu-Medrol 1. Currently on Sanjeev hugger Subjective 01/01: Currently afebrile. Noted decreased hemoglobin and intermittent hypotension resolved with IV fluids and transfusion. No obvious source of bleeding. No obvious or small cyst. Workup in progress. Transfusion 2 units PRBCs. Hemoccult pending. Feels better. Tolerating diet. Tolerating nasal cannula actually. Objective Vital Signs Date Time Temp Pulse Resp B/P Pulse Ox O2 Delivery O2 Flow Rate FiO2 01/01/17 08:36 98 Nasal Cannula 4.00 01/01/17 08:00 78 01/01/17 07:10 98.1 21 103/59 01/01/17 05:12 30 Intake and Output 12/31/16 12/31/16 01/01/17 08:00 16:00 00:00 Intake Total 1529 ml Output Total 500 ml Balance 1029 ml Result Diagram: 01/01/17 0457 01/01/17 0457 Other Results Microbiology Date/Time Procedure Status Source Growth 12/31/16 06:00 Urine Culture - Preliminary Resulted Urine Catheterized Urine NO GROWTH IN 24 HOURS. 12/31/16 06:00 Legionella Antigen - Final Complete Urine Catheterized Urine PRESUMPTIVE NEGATIVE FOR LEGIONELLA P... 12/31/16 06:00 Streptococcus pneumoniae Antigen (M - Final Complete Urine Catheterized Urine PRESUMPTIVE NEGATIVE FOR STREPTOCOCCU... 12/31/16 05:05 Aerobic Blood Culture Received Blood Peripheral Pending 12/31/16 05:05 Anaerobic Blood Culture Received Blood Peripheral Pending Imaging Last Impressions Chest X-Ray 12/31/16 0451 Signed Impressions: Service Date/Time: December 05:15 - CONCLUSION: Left base consolidation. Luis Armando Alanis MD Lower Extremity Ultrasound 12/31/16 0000 Signed Impressions: Service Date/Time: December 08:04 - CONCLUSION: The study is negative for deep venous thrombosis bilateral lower extremity. Chandu Joe MD Objective Remarks GENERAL: 66-year-old male, disheveled currently resting in bed in no acute distress on BiPAP SKIN: Warm and dry. No rash HEAD: Atraumatic. Normocephalic. EYES: Pupils equal and round around 3 mm bilaterally and reactive. No scleral icterus. No injection or drainage. ENT: No nasal bleeding or discharge. Mucous membranes pink and moist. NECK: Trachea midline. No JVD. CARDIOVASCULAR: Regular rate and rhythm. S1, S2. No S4. Without murmur RESPIRATORY: Expiratory wheeze appreciated. Diminished breath sounds in the bases left greater than right. Breath sounds equal bilaterally. GASTROINTESTINAL: Abdomen soft, non-tender, nondistended. Active bowel sounds MUSCULOSKELETAL: Extremities without new skin peripheral edema. No obvious deformities. NEUROLOGICAL: Awake and alert but falls asleep easily. No obvious cranial nerve deficits. Motor grossly within normal limits. Five out of 5 muscle strength in the arms and legs. Speech is slow A/P Assessment and Plan Neuro/Psych: Chronic benzodiazepine use Acute toxic metabolic encephalopathy likely secondary to underlying illness Patient is on Ativan to 0.5 mg every 6 hours as needed for anxiety. Acetaminophen for fever [place]/morphine for pain management. CV: Peripheral vascular disease Hypertension Dyslipidemia Currently on normal saline at 84 cc an hour. Hemodynamically stable. On Norvasc 5 mill grams by mouth daily at home. This is been held. Resume when clinically indicated On Crestor 20 mg by mouth daily. This has been resumed. Resp: Acute on chronic hypoxemic Chronic respiratory failure COPD/O2 dependent Left lower lobe infiltrate BiPAP initially due to CO2 retention with respiratory acidosis. Wean to nasal cannula to maintain saturations greater than equal to 92% Bronchodilator therapy every 4 hours and as needed Continue Advair 100/50 one inhalation twice a day Solu-Medrol 40 mg IV every 8 hours See ID for antibiotics Follow-up chest x-ray in a.m. GI: Chronic constipation Gastroesophageal reflux disease Advance diet as tolerated. Protonix for GI prophylaxis. On Pepcid 20 mg twice a day at nursing facility Colace/as needed Senokot for bowel regimen : Gonzalez will be placed for accurate I's and O's in a critically ill patient Endo: Sliding-scale insulin with Accu-Cheks to maintain euglycemia. Low protocol. Before meals and at bedtime. Renal: Creatinine currently within normal limits. Accurate I's and output Monitor urine output Heme: Leukocytosis Normocytic anemia Monitor CBC daily. Monitor trends. Transfuse 2 units PRBCs since admission. Recheck hemoglobin after transfusion. ID: Healthcare associated pneumonia Receive Zosyn, Rocephin and azithromycin the ED. Will schedule vancomycin cefepime and Zithromax day #2 Pertinent cultures Blood cultures 2, UA, urine Legionella and pneumococcal antigens and influenza all pending MSK: Low back pain PT evaluate and treat FEN: Hyponatremia Currently on normal saline at 84 cc an hour. Replace electrolytes as clinically indicated Access - Utilize peripheral IV. Central line if indicated Prophylaxis - GI - Protonix - DVT - SCD/heparin Critical Care: The total care time was 35 minutes. Time to perform other separately billable procedures was not included in the critical care time. Se Jiang MD Jan 01, 2017 10:38
[2017-01-01] MEDS: VANCOMYCIN 1,000 MG/NS 250 ML IV SCH ×4 (10:50→20:27)
[2017-01-01] MEDS ORDERED: POTASSIUM PHOSPHATE INJ 30 MMOL in SODIUM CHLOR 0.9% 250 ML INJ 250 ML IV ONE (12:00)
[2017-01-01 16:10] LABS: HEMATOCRIT 23.6 % (39.0-51.0); REVIEW FLAG FINAL
[2017-01-02] VITALS (17 sets, daily range): BP systolic 109–133; BP diastolic 56–75; PULSE 82–96; RESP 18–28; TEMP 97.8–99.1; O2SAT 93–99
[2017-01-02] MEDS: CEFEPIME INJ 2,000 MG in SODIUM CHLORIDE 0.9% INJ 100 ML IV SCH ×3 (00:24→16:34)
[2017-01-02] MEDS: RESP: ALBUTEROL 2.5 MG/IPRATROPIUM 0.5 MG NEB (SCH) INH ×6 (03:17→23:00)
[2017-01-02] MEDS: AZITHROMYCIN INJ 500 MG in SODIUM CHLOR 0.9% 250 ML INJ 250 ML IV SCH (06:00)
[2017-01-02] MEDS: CHLORHEXIDINE GLUCONATE 2 % 1 PACK (2 CLOTHS) TOP SCH (06:01)
[2017-01-02] MEDS: INSULIN NovoLIN REGULAR SUPPLEMENTAL SCALE SQ SCH ×4 (06:01→19:50)
[2017-01-02] MEDS: methylPREDNISolone SOD SUCC 40 MG/1 ML VIAL IV PUSH SCH ×3 (06:01→19:50)
--- NOTE | 2017-01-02 08:01 | HHI.CCPN ---
Subjective Remarks/Hospital Course 66 years old male. Date of admission 12/31/2016. Resident of [facility]. Past medical history includes COPD/oxygen dependent, hypertension, peripheral vascular disease and dyslipidemia. He presents to [facility] with a history of shortness of breath times several days and decreasing mental status. Per ED physician, his mentation is slightly worse than normal. EMS further reports of blood sugar 116 heart rate of 100 and a BP of 122/84. En route to the ER he refused nebs and nasal cannula. At this facility, retaining CO2. Chest x-ray reveals left lower lobe infiltrate. Started on nasal cannula 3 L. Received bronchodilator therapy along with 125 mg Solu-Medrol 1. Currently on Sanjeev hugger 01/01: Currently afebrile. Noted decreased hemoglobin and intermittent hypotension resolved with IV fluids and transfusion. No obvious source of bleeding. No obvious or small cyst. Workup in progress. Transfusion 2 units PRBCs. Hemoccult pending. Feels better. Tolerating diet. Tolerating nasal cannula actually. Subjective 01/02: Afebrile. On BiPAP overnight currently nasal cannula. Hemoccult negative. Transfuse 2 units. Received yesterday. Feels better. Tolerating diet. Positive BM. Objective Vital Signs Date Time Temp Pulse Resp B/P Pulse Ox O2 Delivery O2 Flow Rate FiO2 01/02/17 06:00 89 01/02/17 04:30 99 30 01/02/17 04:00 98.4 22 121/63 01/01/17 21:03 Nasal Cannula 3.00 Intake and Output 01/01/17 01/01/17 01/02/17 08:00 16:00 00:00 Intake Total 2136 ml 1575 ml 1038 ml Output Total 450 ml 400 ml 450 ml Balance 1686 ml 1175 ml 588 ml Result Diagram: 01/01/17 1542 01/02/17 0430 Other Results Microbiology Date/Time Procedure Status Source Growth 01/01/17 00:30 Stool Occult Blood (CE) - Final Complete Stool Stool HEMOCCULT NEGATIVE 12/31/16 06:00 Urine Culture - Preliminary Resulted Urine Catheterized Urine NO GROWTH IN 24 HOURS. 12/31/16 06:00 Legionella Antigen - Final Complete Urine Catheterized Urine PRESUMPTIVE NEGATIVE FOR LEGIONELLA P... 12/31/16 06:00 Streptococcus pneumoniae Antigen (M - Final Complete Urine Catheterized Urine PRESUMPTIVE NEGATIVE FOR STREPTOCOCCU... 12/31/16 05:05 Aerobic Blood Culture - Preliminary Resulted Blood Peripheral NO GROWTH IN 1 DAY 12/31/16 05:05 Anaerobic Blood Culture - Preliminary Resulted Blood Peripheral NO GROWTH IN 1 DAY Imaging Last Impressions Chest X-Ray 12/31/16 0453 Signed Impressions: Service Date/Time: December 05:15 - CONCLUSION: Left base consolidation. Luis Armando Alanis MD Lower Extremity Ultrasound 12/31/16 0000 Signed Impressions: Service Date/Time: December 08:04 - CONCLUSION: The study is negative for deep venous thrombosis bilateral lower extremity. Chandu Joe MD Objective Remarks GENERAL: 66-year-old male, disheveled currently resting in bed in no acute distress on nasal cannula SKIN: Warm and dry. No rash HEAD: Atraumatic. Normocephalic. EYES: Pupils equal and round around 3 mm bilaterally and reactive. No scleral icterus. No injection or drainage. ENT: No nasal bleeding or discharge. Mucous membranes pink and moist. NECK: Trachea midline. No JVD. CARDIOVASCULAR: Regular rate and rhythm. S1, S2. No S4. Without murmur RESPIRATORY: Expiratory wheeze appreciated. Diminished breath sounds in the bases left greater than right. Breath sounds equal bilaterally. GASTROINTESTINAL: Abdomen soft, non-tender, nondistended. Active bowel sounds MUSCULOSKELETAL: Extremities without new skin peripheral edema. No obvious deformities. NEUROLOGICAL: Awake and alert but falls asleep easily. No obvious cranial nerve deficits. Motor grossly within normal limits. Five out of 5 muscle strength in the arms and legs. Speech is slow A/P Assessment and Plan Neuro/Psych: Chronic benzodiazepine use Acute toxic metabolic encephalopathy likely secondary to underlying illness Patient is on Ativan to 0.5 mg every 6 hours as needed for anxiety. Acetaminophen for fever [place]/morphine for pain management. CV: Peripheral vascular disease Hypertension Dyslipidemia Currently on normal saline at 84 cc an hour. Hemodynamically stable. We'll discontinue On Norvasc 5 mill grams by mouth daily at home. This is been held. Resume when clinically indicated On Crestor 20 mg by mouth daily. This has been resumed. Resp: Acute on chronic hypoxemic Chronic respiratory failure COPD/O2 dependent Left lower lobe infiltrate BiPAP initially due to CO2 retention with respiratory acidosis. Wean to nasal cannula to maintain saturations greater than equal to 92% Bronchodilator therapy every 4 hours and as needed Continue Advair 100/50 one inhalation twice a day - hospital substitution with Symbicort Solu-Medrol 40 mg IV every 12 hours See ID for antibiotics Follow-up chest x-ray in a.m. GI: Chronic constipation Gastroesophageal reflux disease Advance diet as tolerated. Protonix twice a day for GI prophylaxis. On Pepcid 20 mg twice a day at nursing facility Colace/as needed Senokot for bowel regimen : Gonzalez will be placed for accurate I's and O's in a critically ill patient Endo: Sliding-scale insulin with Accu-Cheks to maintain euglycemia. Low protocol. Before meals and at bedtime. Renal: Creatinine currently within normal limits. Accurate I's and output Monitor urine output Heme: Leukocytosis Normocytic anemia Monitor CBC daily. Monitor trends. Transfuse 2 units PRBCs since admission. Recheck hemoglobin after transfusion was 8.2 No signs of hemolysis. Hemoccult-negative ID: Healthcare associated pneumonia Receive Zosyn, Rocephin and azithromycin the ED. Will schedule vancomycin cefepime and Zithromax day #3 Pertinent cultures Blood cultures 2, UA, urine Legionella and pneumococcal antigens and influenza no growth MSK: Low back pain PT evaluate and treat FEN: Hyponatremia Replace electrolytes as clinically indicated Access - Utilize peripheral IV. Central line if indicated Prophylaxis - GI - Protonix - DVT - SCD/heparin will resume in a.m. Critical Care: The total care time was 35 minutes. Time to perform other separately billable procedures was not included in the critical care time. Patient is stable from a critical care medicine standpoint. We will assign care to hospitalist in AM 01/03 Se Jiang MD Jan 02, 2017 08:01
[2017-01-02] MEDS: ATORVASTATIN 40 MG TAB PO SCH (08:27)
[2017-01-02] MEDS: CLOPIDOGREL 75 MG TAB PO SCH (08:27)
[2017-01-02] MEDS: PANTOPRAZOLE SOD 40 MG DELAYED RELEASE TAB PO SCH ×2 (08:27→19:50)
[2017-01-02] MEDS: DOCUSATE SODIUM 100 MG CAP PO SCH ×2 (08:27→19:50)
[2017-01-02] MEDS: ASPIRIN 81 MG CHEW TAB CHEW SCH (08:27)
[2017-01-02] MEDS: SODIUM CHLOR 0.9% 1000 ML INJ 1,000 ML IV SCH (08:28)
[2017-01-02] MEDS: SODIUM CHLORIDE 0.9% FLUSH 5 ML FLUSH IV FLUSH SCH ×2 (08:28→19:52)
[2017-01-02] MEDS: ARTIFICIAL TEARS OPTH SOLN 15 ML BTL EACH EYE SCH ×3 (09:00→15:44)
[2017-01-02 09:14] LABS: HEMATOCRIT 24.9 % (39.0-51.0); MEAN CELL VOLUME 93.7 FL (80.0-100.0); MEAN CORPUSCULAR HEMOGLOBIN 31.4 PG (27.0-34.0); MEAN CORPUSCULAR HGB CONC 33.5 % (32.0-36.0); PLATELET COUNT 184 TH/MM3 (150-450); RED BLOOD COUNT 2.66 MIL/MM3 (4.50-5.90); RED CELL DISTRIBUTION WIDTH 14.9 % (11.6-17.2); REVIEW FLAG FINAL; WHITE BLOOD COUNT 12.9 TH/MM3 (4.0-11.0)
[2017-01-02 09:30] LABS: BICARBONATE 29.9 MEQ/L (21.0-32.0); POTASSIUM 3.8 MEQ/L (3.5-5.1)
[2017-01-02] MEDS ORDERED: PHARMACY ORDERED LAB XX ONE (09:45)
[2017-01-02] MEDS: BUDESONIDE-FORMOTEROL 160/4.5 MCG INHALER INH SCH ×2 (12:00→19:51)
[2017-01-02] MEDS: VANCOMYCIN 1,000 MG/NS 250 ML IV SCH ×4 (12:00→19:49)
[2017-01-03] VITALS (15 sets, daily range): BP systolic 121–154; BP diastolic 58–75; PULSE 70–105; RESP 24–35; TEMP 98.1–98.4; O2SAT 93–100
[2017-01-03] MEDS: CEFEPIME INJ 2,000 MG in SODIUM CHLORIDE 0.9% INJ 100 ML IV SCH ×4 (00:35→23:58)
[2017-01-03] MEDS: VANCOMYCIN 1,000 MG/NS 250 ML IV SCH ×4 (03:32→12:48)
[2017-01-03] MEDS: CHLORHEXIDINE GLUCONATE 2 % 1 PACK (2 CLOTHS) TOP SCH (03:33)
[2017-01-03] MEDS: RESP: ALBUTEROL 2.5 MG/IPRATROPIUM 0.5 MG NEB (SCH) INH ×6 (03:57→23:43)
--- NOTE | 2017-01-03 04:59 | RADRPT ---
EXAM DATE/TIME: 01/03/2017 03:39 [place] COMPARISON: CHEST SINGLE AP, December 31, 2016, 5:15. INDICATIONS : Shortness of breath, possible pulmonary disease. MEDICAL HISTORY : None. SURGICAL HISTORY : None. ENCOUNTER: Subsequent ACUITY: 4 - 6 days PAIN SCORE: 0/10 LOCATION: Bilateral chest FINDINGS: EKG leads overlying the chest. Hyperinflation. Patchy left basilar airspace disease. CONCLUSION: No significant change has occurred. Raj Tavares MD on January 03, 2017 at 4:57 Board Certified Radiologist. This report was verified electronically.
[2017-01-03] MEDS: INSULIN NovoLIN REGULAR SUPPLEMENTAL SCALE SQ SCH ×4 (05:46→19:35)
[2017-01-03] MEDS: AZITHROMYCIN INJ 500 MG in SODIUM CHLOR 0.9% 250 ML INJ 250 ML IV SCH (05:46)
[2017-01-03 07:45] LABS: AUTOMATED NEUTROPHIL # 12.4 TH/MM3 (1.8-7.7); BASOPHIL % 0.1 % (0.0-2.0); HEMATOCRIT 30.7 % (39.0-51.0); HEMO FLAGS DIFF FINAL; LYMPH % 4.3 % (9.0-44.0); LYMPHOCYTE # 0.6 TH/MM3 (1.0-4.8); MEAN CELL VOLUME 95.2 FL (80.0-100.0); MEAN CORPUSCULAR HEMOGLOBIN 31.2 PG (27.0-34.0); MEAN CORPUSCULAR HGB CONC 32.8 % (32.0-36.0); MONO % 6.3 % (0.0-8.0); NEUT % 89.3 % (16.0-70.0); PLATELET COUNT 231 TH/MM3 (150-450); RED BLOOD COUNT 3.22 MIL/MM3 (4.50-5.90); RED CELL DISTRIBUTION WIDTH 15.5 % (11.6-17.2); WHITE BLOOD COUNT 13.9 TH/MM3 (4.0-11.0)
[2017-01-03 08:02] LABS: ALKALINE PHOSPHATASE 51 U/L (45-117); ALT (GPT) 59 U/L (12-78); ANION GAP 6 MEQ/L (5-15); AST (GOT) 31 U/L (15-37); BICARBONATE 32.1 MEQ/L (21.0-32.0); BLOOD UREA NITROGEN 15 MG/DL (7-18); CHLORIDE 106 MEQ/L (98-107); GLOMERULAR FILTRATION RATE 193 ML/MIN (>89); MAGNESIUM 1.8 MG/DL (1.5-2.5); POTASSIUM 3.6 MEQ/L (3.5-5.1); SODIUM (NA) 144 MEQ/L (136-145)
[2017-01-03] MEDS: methylPREDNISolone SOD SUCC 40 MG/1 ML VIAL IV PUSH SCH ×2 (09:00→19:33)
[2017-01-03] MEDS: PANTOPRAZOLE SOD 40 MG DELAYED RELEASE TAB PO SCH ×2 (09:00→19:34)
[2017-01-03] MEDS: CLOPIDOGREL 75 MG TAB PO SCH (09:00)
[2017-01-03] MEDS ORDERED: PHARMACY ORDERED LAB XX ONE (11:45)
[2017-01-03] MEDS: BUDESONIDE-FORMOTEROL 160/4.5 MCG INHALER INH SCH ×2 (12:42→19:36)
[2017-01-03] MEDS: ARTIFICIAL TEARS OPTH SOLN 15 ML BTL EACH EYE SCH ×3 (12:42→17:52)
[2017-01-03] MEDS: SODIUM CHLORIDE 0.9% FLUSH 5 ML FLUSH IV FLUSH SCH ×2 (12:43→19:34)
[2017-01-03] MEDS: DOCUSATE SODIUM 100 MG CAP PO SCH ×2 (12:45→19:34)
[2017-01-03] MEDS: ASPIRIN 81 MG CHEW TAB CHEW SCH (12:45)
[2017-01-03] MEDS: ATORVASTATIN 40 MG TAB PO SCH (12:46)
--- NOTE | 2017-01-03 12:48 | HHI.PR ---
Subjective Remarks In bed. Says she is less sob. No cough / Feels very tired. Says she is considering hospice, say he would like to go home and not back to SNF. No chest pain . No palpitations. he is dessating when he is talking. Says she is wheezing and is due for nebs. Objective Vitals Vital Signs Date Time Temp Pulse Resp B/P Pulse Ox O2 Delivery O2 Flow Rate FiO2 01/03/17 08:44 94 Nasal Cannula 2.00 01/03/17 08:00 98.1 105 24 154/68 97 01/03/17 08:00 105 01/03/17 06:00 92 01/03/17 04:00 82 01/03/17 04:00 98.1 82 27 142/66 99 01/03/17 02:00 82 01/03/17 00:26 98 Nasal Cannula 2.00 01/03/17 00:00 98.2 94 32 142/67 99 01/03/17 00:00 94 01/02/17 22:30 99 30 01/02/17 22:00 90 01/02/17 20:50 97 Nasal Cannula 2.00 01/02/17 20:00 91 01/02/17 20:00 97.9 91 27 133/66 99 01/02/17 18:00 96 01/02/17 16:00 92 01/02/17 16:00 97.8 87 28 111/75 99 01/02/17 14:00 83 I/O 01/02/17 01/02/17 01/02/17 01/03/17 01/03/17 01/03/17 07:00 15:00 23:00 07:00 15:00 23:00 Intake Total 973 ml 732 ml 250 ml 250 ml Output Total 500 ml 600 ml 400 ml Balance 473 ml 132 ml -150 ml 250 ml Intake Oral 240 ml 420 ml IV Total 733 ml 312 ml 250 ml 250 ml Output Urine Total 500 ml 600 ml 400 ml # Bowel Movements 0 1 Result Diagram: 01/03/17 0708 01/03/17 0708 Imaging Last Impressions Chest X-Ray 01/03/17 0600 Signed Impressions: Service Date/Time: Tuesday, January 03, 2017 03:39 - CONCLUSION: No significant change has occurred. Raj Tavares MD Lower Extremity Ultrasound 12/31/16 0000 Signed Impressions: Service Date/Time: December 08:04 - CONCLUSION: The study is negative for deep venous thrombosis bilateral lower extremity. Chandu Joe MD Objective Remarks GENERAL: 66-year-old male, disheveled currently resting in bed in no acute distress on nasal cannula SKIN: Warm and dry. No rash HEAD: Atraumatic. Normocephalic. EYES: Pupils equal and round around 3 mm bilaterally and reactive. No scleral icterus. No injection or drainage. ENT: No nasal bleeding or discharge. Mucous membranes pink and moist. NECK: Trachea midline. No JVD. CARDIOVASCULAR: Regular rate and rhythm. S1, S2. No S4. Without murmur RESPIRATORY: Expiratory wheeze appreciated. Diminished breath sounds in the bases left greater than right. Breath sounds equal bilaterally. GASTROINTESTINAL: Abdomen soft, non-tender, nondistended. Active bowel sounds MUSCULOSKELETAL: Extremities without new skin peripheral edema. No obvious deformities. NEUROLOGICAL: Awake and alert but falls asleep easily. No obvious cranial nerve deficits. Motor grossly within normal limits. Five out of 5 muscle strength in the arms and legs. Speech is slow A/P Problem List: (1) Anemia ICD Code: D64.9 Status: Acute (2) Hypercarbia ICD Code: R06.89 Status: Acute (3) Sepsis due to pneumonia ICD Code: J18.9 Status: Acute (4) HCAP (healthcare-associated pneumonia) ICD Code: J18.9 Status: Acute (5) COPD (chronic obstructive pulmonary disease) ICD Code: J44.9 Status: Acute (6) Hypertension ICD Code: I10 Status: Acute (7) Dyslipidemia ICD Code: E78.5 Status: Acute (8) terminal carman prescription benzodiazepine use ICD Code: Z79.899 Status: Acute (9) Peripheral vascular disease ICD Code: I73.9 Status: Acute (10) Gastroesophageal reflux disease ICD Code: K21.9 Status: Acute (11) Normocytic anemia ICD Code: D64.9 Status: Acute (12) Hyponatremia ICD Code: E87.1 Status: Acute (13) Hyperglycemia ICD Code: R73.9 Status: Acute (14) Leukocytosis ICD Code: D72.829 Status: Acute (15) Constipation ICD Code: K59.00 Status: Acute (16) Hypothermia ICD Code: T68.XXXA Status: Acute Assessment and Plan Chronic benzodiazepine use Acute toxic metabolic encephalopathy likely secondary to underlying illness Patient is on Ativan to 0.5 mg every 6 hours as needed for anxiety. Acetaminophen for fever [place]/morphine for pain management. Patient says he doesn't have a lung doctor Will consult pulm CV: Peripheral vascular disease Hypertension Dyslipidemia Currently on normal saline at 84 cc an hour. Hemodynamically stable. We'll discontinue On Norvasc 5 mill grams by mouth daily at home. This is been held. Resume when clinically indicated On Crestor 20 mg by mouth daily. This has been resumed. Resp: Acute on chronic hypoxemic Chronic respiratory failure COPD/O2 dependent Left lower lobe infiltrate BiPAP initially due to CO2 retention with respiratory acidosis. Wean to nasal cannula to maintain saturations greater than equal to 92% Bronchodilator therapy every 4 hours and as needed Continue Advair 100/50 one inhalation twice a day - hospital substitution with Symbicort Solu-Medrol 40 mg IV every 12 hours See ID for antibiotics Follow-up chest x-ray in a.m. GI: Chronic constipation Gastroesophageal reflux disease Advance diet as tolerated. Protonix twice a day for GI prophylaxis. On Pepcid 20 mg twice a day at nursing facility Colace/as needed Senokot for bowel regimen : Gonzalez will be placed for accurate I's and O's in a critically ill patient Endo: Sliding-scale insulin with Accu-Cheks to maintain euglycemia. Low protocol. Before meals and at bedtime. Renal: Creatinine currently within normal limits. Accurate I's and output Monitor urine output Heme: Leukocytosis Normocytic anemia Monitor CBC daily. Monitor trends. Transfuse 2 units PRBCs since admission. Recheck hemoglobin after transfusion was 8.2 No signs of hemolysis. Hemoccult-negative ID: Healthcare associated pneumonia Receive Zosyn, Rocephin and azithromycin the ED. Will schedule vancomycin cefepime and Zithromax day #3 Pertinent cultures Blood cultures 2, UA, urine Legionella and pneumococcal antigens and influenza no growth MSK: Low back pain Physcical deconditioning PT/OT evaluate and treat FEN: Hyponatremia Replace electrolytes as clinically indicated Access - Utilize peripheral IV. Central line if indicated Prophylaxis - GI - Protonix - DVT - SCD/heparin will resume in a.m. Discussed code status > Full code. Patient is considering however hospice. Will ask palliative care on consult Discussed with the patient, nurse , Dr Jiang therapeutic activities services worker Problem Qualifiers (1) Anemia: Qualified Code: D64.89 - Anemia due to other cause, not classified (2) COPD (chronic obstructive pulmonary disease): Qualified Code: J43.9 - Pulmonary emphysema, unspecified emphysema type (3) Hypertension: Qualified Code: I10 - Essential hypertension (4) Gastroesophageal reflux disease: Qualified Code: K21.9 - Gastroesophageal reflux disease, esophagitis presence not specified (5) Leukocytosis: Qualified Code: D72.829 - Leukocytosis, unspecified type (6) Constipation: Qualified Code: K59.00 - Constipation, unspecified constipation type (7) Hypothermia: Qualified Code: T68.XXXA - Hypothermia, initial encounter Liss Mcwilliams MD Jan 03, 2017 12:48
[2017-01-03] MEDS: VANCOMYCIN INJ 1,250 MG in SODIUM CHLOR 0.9% 250 ML INJ 250 ML IV SCH (19:34)
[2017-01-04] VITALS (14 sets, daily range): BP systolic 126–160; BP diastolic 64–77; PULSE 81–95; RESP 16–33; TEMP 97.5–98.8; O2SAT 96–99
[2017-01-04] MEDS: RESP: ALBUTEROL 2.5 MG/IPRATROPIUM 0.5 MG NEB (SCH) INH (03:43)
[2017-01-04] MEDS: CHLORHEXIDINE GLUCONATE 2 % 1 PACK (2 CLOTHS) TOP SCH (04:00)
[2017-01-04] MEDS: INSULIN NovoLIN REGULAR SUPPLEMENTAL SCALE SQ SCH ×4 (04:32→21:00)
[2017-01-04] MEDS: VANCOMYCIN INJ 1,250 MG in SODIUM CHLOR 0.9% 250 ML INJ 250 ML IV SCH ×3 (04:32→21:37)
[2017-01-04] MEDS: AZITHROMYCIN INJ 500 MG in SODIUM CHLOR 0.9% 250 ML INJ 250 ML IV SCH (04:32)
[2017-01-04 06:50] LABS: AUTOMATED NEUTROPHIL # 11.2 TH/MM3 (1.8-7.7); BASOPHIL % 0.1 % (0.0-2.0); HEMATOCRIT 29.1 % (39.0-51.0); LYMPH % 5.9 % (9.0-44.0); LYMPHOCYTE # 0.7 TH/MM3 (1.0-4.8); MEAN CELL VOLUME 95.8 FL (80.0-100.0); MEAN CORPUSCULAR HEMOGLOBIN 31.8 PG (27.0-34.0); MEAN CORPUSCULAR HGB CONC 33.2 % (32.0-36.0); MONO % 5.1 % (0.0-8.0); NEUT % 88.9 % (16.0-70.0); PLATELET COUNT 215 TH/MM3 (150-450); RED BLOOD COUNT 3.04 MIL/MM3 (4.50-5.90); RED CELL DISTRIBUTION WIDTH 15.4 % (11.6-17.2); WHITE BLOOD COUNT 12.6 TH/MM3 (4.0-11.0)
[2017-01-04 07:01] LABS: HEMO FLAGS AUTO DIFF
[2017-01-04 07:02] LABS: BICARBONATE 34.1 MEQ/L (21.0-32.0); POTASSIUM 3.9 MEQ/L (3.5-5.1)
[2017-01-04 08:42] LABS: PLATELET ESTIMATE SMEAR NORMAL (NORMAL); PLATELET MORPHOLOGY NORMAL (NORMAL); SCAN/DIFF AUTO DIFF CONFIRMED
[2017-01-04] MEDS: DOCUSATE SODIUM 100 MG CAP PO SCH ×2 (09:00→21:00)
[2017-01-04] MEDS: ASPIRIN 81 MG CHEW TAB CHEW SCH (09:02)
[2017-01-04] MEDS: CEFEPIME INJ 2,000 MG in SODIUM CHLORIDE 0.9% INJ 100 ML IV SCH ×2 (09:03→18:06)
[2017-01-04] MEDS: methylPREDNISolone SOD SUCC 40 MG/1 ML VIAL IV PUSH SCH ×2 (09:03→21:37)
[2017-01-04] MEDS: PANTOPRAZOLE SOD 40 MG DELAYED RELEASE TAB PO SCH ×2 (09:04→21:39)
[2017-01-04] MEDS: CLOPIDOGREL 75 MG TAB PO SCH (09:04)
[2017-01-04] MEDS: ATORVASTATIN 40 MG TAB PO SCH (09:04)
--- NOTE | 2017-01-04 09:05 | PD.CONS ---
Consult Service Palliative Care . Consult Requested By Dr. Mcwilliams . Primary Care Physician Ryan Madsen MD . Reason for Consultation a. To assist with evaluation and management of symptoms including: dyspnea, weakness, fatigue. b. To assist medical decision maker(s) with: better understanding of current medical conditions; weighing benefits/burdens of medical treatment options; making medical treatment decisions. . HPI History of Present Illness Mr. Swan is a 66 year old male with past medical history COPD, hypertension, PVD and hyperlipidemia. He was recently admitted to [facility] then to [facility]. He was in [facility] for 1 day before transfer to [facility] for SOB. Prior to admission patient he reports he was living home independently. Patient presented to [facility] ER on 12/31/16 with worsening shortness of breath for several days and declining mental status. EMS reported of blood sugar 116, heart rate of 100 and a BP of 122/84. En route to the ER he refused nebs and nasal cannula. Initial emergency room evaluation revealed: * VS: pulse 105, resp 26, BP 123/59 * WBC 23.6, hemoglobin 8.5, hematocrit 24.3, platelets 286, neutrophils 93.1% * PT 10, INR 0.9, PTT 27 * Sodium 130, potassium 4.5, BUN 13, creatinine 0.38, GFR 229 * Lactic acid 1.1 * T. Bili 1.4, AST 33, ALT 48, Alk Phos 57 * T. Protein 7.5, albumin 3.2 * Urinalysis + bacteria, culture ordered, negative at 48 hours. * Chest x-ray reveals left lower lobe infiltrate. * Bilateral LE ultrasound - negative DVT. Patient is admitted to ICU with sepsis, healthcare associated pneumonia and acute respiratory failure. Cultures negative to date. He was anemic status post transfusion. Hemoccult negative. Was on BiPAP now tolerating nasal cannula. Palliative care is consulted to further clarify goals. Patient seen and examined in ICU. He has a DC order in and employment case manager here to discuss plan for DC back to [facility]. . Function/Cognitive Trajectory Was living home alone prior to last admission at . He slept in a recliner due to SOB. He was independent for ADLs. He is now quite debilitated and unable to get out of bed independently. Spoke with sonMarco via telephone, He is concerned about early DC, he wants to appeal DC. Cami in case management notified. . Review of Systems Constitutional: COMPLAINS OF: Fatigue, Weight loss, Change in appetite ( decreased), Generalized weakness Respiratory: COMPLAINS OF: Cough, Sputum production, Shortness of breath Cardiovascular: COMPLAINS OF: Dyspnea on Exertion, Lower Extremity Edema Gastrointestinal: COMPLAINS OF: Constipation, Anorexia Integumentary: COMPLAINS OF: Abnormal pigmentation (peripheral vascular changes. ), Non-healing sores Hematologic/Lymphatics: COMPLAINS OF: Bruising Neurologic: COMPLAINS OF: Poor Balance Psychiatric: COMPLAINS OF: Anxiety Past Family Social History Coded Allergies: No Known Allergies (Verified Allergy, Mild, 07/23/08) Past Medical History Oxygen dependent COPD Hypertension Dyslipidemia Peripheral vascular disease Chronic benzodiazepine use Constipation . Past Surgical History Left finger abscess I&D Hernia repair Left ankle . Reported Medications Reported Meds & Active Scripts Active Reported Office Medication (Miscellaneous Medication) Misc 2 Liter NASAL DAILY PRN Methylprednisolone Sod Succinate Inj (Methylprednisolone Sodium Succinate) 125 Mg Inj 125 Mg IM ONCE Enema Mpjuq-Iz-Tcd (Sodium Phosphates) 1 Cecile Cecile Citroma Liq (Magnesium Citrate) 300 Ml Liq 300 Ml PO ONCE Qc Gentle Laxative (Bisacodyl) 10 Mg Sup Ativan (Lorazepam) 1 Mg Tab 1 Mg PO DAILY PRN Lorazepam 0.5 Mg Tab 0.5 Mg PO Q6H PRN Albuterol Neb (Albuterol Sulfate) 2.5 Mg/3 Ml Neb 2.5 Mg NEB QID NEB Famotidine 20 Mg Tab 20 Mg PO BID Docusate Sodium 100 Mg Cap 100 Mg PO BID Advair Diskus Inh (Fluticasone-Salmeterol Inh) 100-50 Mcg/Blist Aer 2 Puff INH BID Rinse mouth after use. Rosuvastatin (Rosuvastatin Calcium) 20 Mg Tab 20 Mg PO DAILY Clopidogrel (Clopidogrel Bisulfate) 75 Mg Tab 75 Mg PO DAILY Aspirin Low Dose (Aspirin) 81 Mg Chew 81 Mg CHEW DAILY Amlodipine (Amlodipine Besylate) 5 Mg Tab 5 Mg PO DAILY [Epsom Salts] XX LAST NIGHT . Current Medications Medications (Trade) Dose Ordered Sig/Edgar Route Start Time Stop Time Status Last Admin (NS Flush) 2 ml UNSCH PRN IV FLUSH 12/31/16 07:30 (NS Flush) 2 ml BID IV FLUSH 12/31/16 09:00 01/03/17 19:34 (Tylenol) 650 mg Q6H PRN PO 12/31/16 07:30 (Taylor 5-325 Mg) 1 tab Q4H PRN PO 12/31/16 07:30 (Morphine Inj) 2 mg Q2H PRN IV 12/31/16 07:30 (Tears Naturale Opth Soln) 1 drop TID EACH EYE 12/31/16 09:00 01/03/17 17:52 (Zofran Inj) 4 mg Q6H PRN IV 12/31/16 07:30 (Colace) 100 mg BID PO 12/31/16 09:00 01/03/17 12:45 (Senokot) 17.2 mg Q12H PRN PO 12/31/16 07:30 (Heparin Inj) 5,000 units Q12H SQ 12/31/16 09:00 Hold 12/31/16 20:56 Miscellaneous Information 1 Q361D XX 12/31/16 07:30 (Chlorhexidine 2% Cloth) 3 pack Taper DAILY@04 TOP 01/01/17 04:00 12/28/17 03:59 01/04/17 04:00 Chlorhexidine Gluconate 3 pack 3 pack UNSCH PRN TOP 12/31/16 07:30 Cefepime HCl 2000 mg/Sodium Chloride 100 ml @ 200 mls/hr Q8H IV 12/31/16 09:00 01/03/17 23:58 Azithromycin 500 mg/Sodium Chloride 250 ml @ 250 mls/hr Q24H IV 01/01/17 06:00 01/04/17 04:32 (Vancomycin Consult Pharmacy) 0 ml @ 0 mls/hr UNSCH XX 12/31/16 07:30 (D50w (Vial) Inj) 25 ml UNSCH PRN IV PUSH 12/31/16 07:30 Glucagon 1 mg 1 mg UNSCH PRN OTHER 12/31/16 07:30 Potassium Chloride 100 ml @ 50 mls/hr Q2H PRN IV-CENTRAL 12/31/16 07:30 (KCl 20 Meq Premix Inj) 100 ml @ 50 mls/hr Q2H PRN IV 12/31/16 07:30 Potassium Chloride 40 meq 40 meq UNSCH PRN PO/TUBE 12/31/16 07:30 Potassium Chloride 100 ml @ 25 mls/hr UNSCH PRN IV-CENTRAL 12/31/16 07:30 Potassium Chloride 100 ml @ 50 mls/hr Q2H PRN IV 12/31/16 07:30 (Magnesium Sulfate Inj/NS Inj) 100 ml @ 50 mls/hr UNSCH PRN IV 12/31/16 07:30 Magnesium Oxide 800 mg 800 mg UNSCH PRN PO 12/31/16 07:30 (Magnesium Sulfate Inj/NS Inj) 100 ml @ 50 mls/hr UNSCH PRN IV 12/31/16 07:30 Potassium Phosphate 2000 mg 2,000 mg Q4H PRN PO 12/31/16 07:30 (Sodium Phosphate Inj/NS 250 ml Inj) 250 ml @ 42 mls/hr UNSCH PRN IV 12/31/16 07:30 (KCl 40 Meq/30 ml Liq) 40 meq UNSCH PRN PO/TUBE 12/31/16 07:30 Potassium Phosphate 2000 mg 2,000 mg UNSCH PRN PO/TUBE 12/31/16 07:30 (Potassium Phosphate Inj/NS 250 ml Inj) 260 ml @ 42 mls/hr UNSCH PRN IV 12/31/16 07:30 (Aspirin Chew) 81 mg DAILY CHEW 12/31/16 09:00 01/03/17 12:45 (Plavix) 75 mg DAILY PO 12/31/16 09:00 01/03/17 09:00 (Ativan) 0.5 mg Q6H PRN PO 12/31/16 07:30 (Symbicort 160-4.5 Inh) 2 puff BID INH 12/31/16 10:00 01/03/17 12:42 (Lipitor) 40 mg DAILY PO 12/31/16 10:00 01/03/17 12:46 (Protonix) 40 mg Q12HR PO 01/02/17 09:00 01/03/17 19:34 Methylprednisolone Sodium Succinate 40 mg 40 mg BID IV PUSH 01/02/17 09:00 01/03/17 19:33 (Vancomycin Inj/ NS 250 ml Inj) 262.5 ml @ 250 mls/hr Q8H IV 01/03/17 20:00 01/04/17 04:32 Miscellaneous Information SPECIFIC LAB TO BE ... ONCE ONCE XX 01/04/17 11:45 01/04/17 11:46 . Family History 3 living sons. . Substance Use Tobacco: Prior tobacco use three quarters packs per day. Alcohol: 3-4 shots of alcohol weekly. Prescription med abuse: none known. Illicits: No IV drug use documented Caffeine: Drinks 10 cups of coffee daily. . Psychosocial History . Has 3 adult sons Marco (lives in [place]), Cory (in [place])and Victor Manuel ( [facility]). 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 He has not worked in 1 year due to health. . Spiritual/Cultural Factors None. . Living Will: Never completed Health Care Surrogate: Copy in medical record Durable Power of Area Field Manager: Never completed Date completed: 01/04/17 Health Care Surrogate(s): Patient completed designation of [facility] naming his son, Marco Swan at [facility]. . Today's verbally stated goals: Patient desires continued aggressive care, he has a very simple understanding. It is difficult to carry on prolonged conversation. . Family/friends goals: Left message for sonMarco. . Ethical and Legal Issues Patient is currently capacitated to make his own decisions. He completed designation of [facility] naming his son, Marco Swan at [facility] should he become incapacitated. . Physical Exam Vital Signs Date Time Temp Pulse Resp B/P Pulse Ox O2 Delivery O2 Flow Rate FiO2 01/04/17 06:00 90 01/04/17 04:00 82 01/04/17 04:00 97.9 82 16 126/66 99 01/04/17 02:00 83 01/04/17 00:00 87 01/04/17 00:00 98.7 87 33 160/77 96 01/03/17 22:00 89 01/03/17 20:44 96 21 01/03/17 20:00 98.1 93 35 154/72 98 01/03/17 20:00 93 01/03/17 18:00 87 01/03/17 16:00 82 01/03/17 16:00 98.1 82 24 141/75 100 01/03/17 14:00 94 01/03/17 12:00 98.4 70 26 121/58 93 01/03/17 12:00 92 01/03/17 10:00 86 01/03/17 01/04/17 19:00 07:00 Intake Total 1080 ml 1434 ml Output Total 1150 ml 1875 ml Balance -70 ml -441 ml Intake Oral 720 ml IV Total 360 ml 1434 ml Output Urine Total 1150 ml 1875 ml # Bowel Movements 2 Exam CONSTITUTIONAL/GENERAL: This is a thin, frail patient, visibly dyspneic at rest. TUBES/LINES/DRAINS: NC, PIV x2 on right, SCDs, multipodus boots. SKIN: No jaundice, rashes, or lesions. Ecchymoses on upper extremities. Peripheral vascular changes all extremities. Extremities cool to touch. Cyanosis fingers. HEAD: Atraumatic. Normocephalic. EYES: Pupils equal and round and reactive. No scleral icterus. No injection or drainage. ENT: Hearing grossly normal. Nose without bleeding or purulent drainage. Throat without visible erythema, exudates, masses, or lesions. NECK: Trachea midline. CARDIOVASCULAR: Irregular. No JVD. RESPIRATORY/CHEST: Symmetric, labored respirations at rest. Scattered crackles. Weak non-productive cough noted. GASTROINTESTINAL: Abdomen soft, non-tender, nondistended. No guarding. Bowel sounds present. GENITOURINARY: Without palpable bladder distension. MUSCULOSKELETAL: Extremities with cyanosis hands. LYMPHATICS: No palpable cervical or supraclavicular adenopathy. NEUROLOGICAL: Awake and alert. Follows commands. Moves all extremities. PSYCHIATRIC: anxiety due to dyspnea. . Diagnostic Tests Laboratory Laboratory Tests Test 01/01/17 01/02/17 01/02/17 01/02/17 15:42 04:30 08:47 10:00 Hemoglobin 8.2 GM/DL 8.4 GM/DL (13.0-17.0) (13.0-17.0) Hematocrit 23.6 % 24.9 % (39.0-51.0) (39.0-51.0) Creatinine 0.39 MG/DL 0.36 MG/DL (0.60-1.30) (0.60-1.30) Estimat Glomerular Filtration 222 ML/MIN 244 ML/MIN Rate (>89) (>89) White Blood Count 12.9 TH/MM3 (4.0-11.0) Red Blood Count 2.66 MIL/MM3 (4.50-5.90) Mean Corpuscular Volume 93.7 FL (80.0-100.0) Mean Corpuscular Hemoglobin 31.4 PG (27.0-34.0) Mean Corpuscular Hemoglobin 33.5 % Concent (32.0-36.0) Red Cell Distribution Width 14.9 % (11.6-17.2) Platelet Count 184 TH/MM3 (150-450) Mean Platelet Volume 7.4 FL (7.0-11.0) Sodium Level 143 MEQ/L (136-145) Potassium Level 3.8 MEQ/L (3.5-5.1) Chloride Level 106 MEQ/L (98-107) Carbon Dioxide Level 29.9 MEQ/L (21.0-32.0) Anion Gap 7 MEQ/L (5-15) Blood Urea Nitrogen 10 MG/DL (7-18) Random Glucose 100 MG/DL (74-106) Calcium Level 7.5 MG/DL (8.5-10.1) Vancomycin Level Trough 8.2 MCG/ML (5.0-10.0) Test 01/03/17 01/03/17 01/04/17 01/04/17 07:08 12:19 05:18 05:19 White Blood Count 13.9 TH/MM3 12.6 TH/MM3 (4.0-11.0) (4.0-11.0) Red Blood Count 3.22 MIL/MM3 3.04 MIL/MM3 (4.50-5.90) (4.50-5.90) Hemoglobin 10.1 GM/DL 9.7 GM/DL (13.0-17.0) (13.0-17.0) Hematocrit 30.7 % 29.1 % (39.0-51.0) (39.0-51.0) Mean Corpuscular Volume 95.2 FL 95.8 FL (80.0-100.0) (80.0-100.0) Mean Corpuscular Hemoglobin 31.2 PG 31.8 PG (27.0-34.0) (27.0-34.0) Mean Corpuscular Hemoglobin 32.8 % 33.2 % Concent (32.0-36.0) (32.0-36.0) Red Cell Distribution Width 15.5 % 15.4 % (11.6-17.2) (11.6-17.2) Platelet Count 231 TH/MM3 215 TH/MM3 (150-450) (150-450) Mean Platelet Volume 7.3 FL 7.6 FL (7.0-11.0) (7.0-11.0) Neutrophils (%) (Auto) 89.3 % 88.9 % (16.0-70.0) (16.0-70.0) Lymphocytes (%) (Auto) 4.3 % 5.9 % (9.0-44.0) (9.0-44.0) Monocytes (%) (Auto) 6.3 % (0.0-8.0) 5.1 % (0.0-8.0) Eosinophils (%) (Auto) 0.0 % (0.0-4.0) 0.0 % (0.0-4.0) Basophils (%) (Auto) 0.1 % (0.0-2.0) 0.1 % (0.0-2.0) Neutrophils # (Auto) 12.4 TH/MM3 11.2 TH/MM3 (1.8-7.7) (1.8-7.7) Lymphocytes # (Auto) 0.6 TH/MM3 0.7 TH/MM3 (1.0-4.8) (1.0-4.8) Monocytes # (Auto) 0.9 TH/MM3 0.6 TH/MM3 (0-0.9) (0-0.9) Eosinophils # (Auto) 0.0 TH/MM3 0.0 TH/MM3 (0-0.4) (0-0.4) Basophils # (Auto) 0.0 TH/MM3 0.0 TH/MM3 (0-0.2) (0-0.2) CBC Comment DIFF FINAL AUTO DIFF Differential Comment Sodium Level 144 MEQ/L 143 MEQ/L (136-145) (136-145) Potassium Level 3.6 MEQ/L 3.9 MEQ/L (3.5-5.1) (3.5-5.1) Chloride Level 106 MEQ/L 103 MEQ/L (98-107) (98-107) Carbon Dioxide Level 32.1 MEQ/L 34.1 MEQ/L (21.0-32.0) (21.0-32.0) Anion Gap 6 MEQ/L (5-15) 6 MEQ/L (5-15) Blood Urea Nitrogen 15 MG/DL (7-18) 13 MG/DL (7-18) Creatinine 0.44 MG/DL 0.37 MG/DL (0.60-1.30) (0.60-1.30) Estimat Glomerular Filtration 193 ML/MIN 236 ML/MIN Rate (>89) (>89) Random Glucose 104 MG/DL 106 MG/DL (74-106) (74-106) Calcium Level 8.0 MG/DL 8.3 MG/DL (8.5-10.1) (8.5-10.1) Phosphorus Level 1.8 MG/DL (2.5-4.9) Magnesium Level 1.8 MG/DL (1.5-2.5) Total Bilirubin 1.0 MG/DL (0.2-1.0) Aspartate Amino Transf 31 U/L (15-37) (AST/SGOT) Alanine Aminotransferase 59 U/L (12-78) (ALT/SGPT) Alkaline Phosphatase 51 U/L (45-117) Total Protein 6.3 GM/DL (6.4-8.2) Albumin 2.9 GM/DL (3.4-5.0) Vancomycin Level Trough 12.6 MCG/ML (5.0-10.0) Result Diagram: 01/04/17 0519 01/04/17 0518 Microbiology Microbiology Date/Time Procedure Status Source Growth 01/02/17 08:15 Influenza Types A,B Antigen (CE) - Final Complete Nasal Washing NEGATIVE FOR FLU A AND B ANTIGEN.... . Imaging Last Impressions Chest X-Ray 01/03/17 0600 Signed Impressions: Service Date/Time: Tuesday, January 03, 2017 03:39 - CONCLUSION: No significant change has occurred. Raj Tavares MD Lower Extremity Ultrasound 12/31/16 0000 Signed Impressions: Service Date/Time: December 08:04 - CONCLUSION: The study is negative for deep venous thrombosis bilateral lower extremity. Chandu Joe MD . Patient/Family Conference Present at Family Conference: Spoke with patient. Left message for sonMarco. . Family Conference Time (mins): 35 Family Conference Location: Bedside Issues Discussed: * Palliative care role, purpose, approach * Additional medical, psychosocial, and spiritual history * Patients general health, functional status, and cognitive changes in the months leading up to the current hospitalization * Patient/family understanding of the current medical problems * Patient/family understanding of prognosis * Patients goals of care as best understood from advance directives and/or conversations and/or values * Current medical treatment options and benefits/burdens of those options * Likely scenarios comparing ongoing aggressive care with a transition to comfort measures only * Questions answered to the best of my ability * Palliative care contact information provided Assessment and Plan Disease Oriented Problem List: (1) senior care prescription benzodiazepine use (2) Dyslipidemia (3) Hypertension (4) Peripheral vascular disease (5) Leukocytosis (6) HCAP (healthcare-associated pneumonia) (7) COPD (chronic obstructive pulmonary disease) (8) Anemia (9) Hypercarbia (10) Sepsis due to pneumonia Symptom Scale: (1) Weakness 0-10 Scale: Unable to quantify (2) Dyspnea 0-10 Scale: 7 (3) Fatigue 0-10 Scale: Unable to quantify (4) Anxiety 0-10 Scale: 4 Pertinent Non-Medical Issues Psychosocial: . Spiritual: None. Legal:Patient is currently capacitated to make his own decisions. He completed designation of [facility] naming his son, Marco Swan at [facility] should he become incapacitated. Ethical issues impacting care: None. . Important Contacts * Marco Swan, son: [phone] * Luis Armando Chong, brother: [phone] . Prognosis Overall prognosis appears poor. . Code Status: Full Code Plan * Patient is currently capacitated to make his own decisions. He completed designation of [facility] naming his son, Marco Swan at [facility] should he become incapacitated. Original on chart to go with patient. Copy sent to HIM to be scanned into EMR. * FULL CODE. * Patient goals remain aggressive at this time. Attempted to address CODE STATUS , difficult for patient to stay focused on conversation. Completed designation of Health care surrogate. [facility] per attending orders. * Left message for patient sonMarco to provide medical update. * SYMPTOMS: dyspnea: on oxygen via NC. Visibly SOB at rest. PRN Lorazepam available. Anxiety: improved with PRN Lorazepam during my visit. * Palliative care will be available as needed. . Time Spent Total Floor Time (mins): 35 Face to Face Time (mins): 60 >50% Counseling/Coord of Care: Yes Thank you for the opportunity to participate in the care of Mr. Swan. Attestation To help prompt me to consider important information that might be impacting today's encounter and assessment, information from prior notes written by myself or my colleagues may have been "brought forward" into today's note. My signature on this note, however, is an attestation that I personally performed the exam, history, and/or decision-making noted today, and, unless otherwise indicated, the interactions with patient, family, and staff as well as the review of records all occurred today. I also attest that the listed assessment and stated plan reflect my best clinical judgment today based on the combination of historical information, prior notes, and today's exam/ interactions. When time spent is documented, it refers only to time spent today by the signer, or if indicated, combined time spent today by collaborating physician/nurse practitioner. . ENRRIQUE VIDALES Jan 04, 2017 09:05
[2017-01-04] MEDS: SODIUM CHLORIDE 0.9% FLUSH 5 ML FLUSH IV FLUSH SCH ×2 (09:09→21:37)
[2017-01-04] MEDS: RESP: ALBUTEROL 2.5 MG/IPRATROPIUM 0.5 MG NEB (PRN) INH ×2 (09:20→21:11)
[2017-01-04] MEDS: ARTIFICIAL TEARS OPTH SOLN 15 ML BTL EACH EYE SCH ×3 (10:01→18:06)
[2017-01-04] MEDS: BUDESONIDE-FORMOTEROL 160/4.5 MCG INHALER INH SCH ×2 (10:01→21:00)
[2017-01-04] MEDS ORDERED: IPRA17I INH (10:37)
[2017-01-04] MEDS ORDERED: PRED10PA PO (10:37)
[2017-01-04] MEDS ORDERED: LORA-373 PO (10:37)
--- NOTE | 2017-01-04 10:38 | HHI.DS ---
Discharge Summary Admission Date Dec 31, 2016 at 06:54 Admitting Diagnosis Sepsis (PNA), Hypercarbia, Anemia (1) Anemia ICD Code: D64.9 Diagnosis: Principal (2) Hypercarbia ICD Code: R06.89 Diagnosis: Principal (3) Sepsis due to pneumonia ICD Code: J18.9 Diagnosis: Principal (4) HCAP (healthcare-associated pneumonia) ICD Code: J18.9 Diagnosis: Principal (5) COPD (chronic obstructive pulmonary disease) ICD Code: J44.9 Diagnosis: Principal (6) Hypertension ICD Code: I10 Diagnosis: Principal (7) Dyslipidemia ICD Code: E78.5 Diagnosis: Principal (8) prison prescription benzodiazepine use ICD Code: Z79.899 Diagnosis: Principal (9) Peripheral vascular disease ICD Code: I73.9 Diagnosis: Principal (10) Gastroesophageal reflux disease ICD Code: K21.9 Diagnosis: Principal (11) Normocytic anemia ICD Code: D64.9 Diagnosis: Principal (12) Hyponatremia ICD Code: E87.1 Diagnosis: Principal (13) Hyperglycemia ICD Code: R73.9 Diagnosis: Principal (14) Leukocytosis ICD Code: D72.829 Diagnosis: Principal (15) Constipation ICD Code: K59.00 Diagnosis: Principal (16) Hypothermia ICD Code: T68.XXXA Diagnosis: Principal Brief History - From Admission 66 years old male. Date of admission 12/31/2016. Resident of [facility]. Past medical history includes COPD/oxygen dependent, hypertension, peripheral vascular disease and dyslipidemia. He presents to [facility] with a history of shortness of breath times several days and decreasing mental status. Per ED physician, his mentation is slightly worse than normal. EMS further reports of blood sugar 116 heart rate of 100 and a BP of 122/84. En route to the ER he refused nebs and nasal cannula. At this facility, retaining CO2. Chest x-ray reveals left lower lobe infiltrate. Started on nasal cannula 3 L. Received bronchodilator therapy along with 125 mg Solu-Medrol 1. Currently on Sanjeev banegas CBC/BMP: 01/04/17 0519 01/04/1718 Significant Findings Laboratory Tests Test 01/01/17 01/02/17 01/02/17 01/03/17 15:42 04:30 08:47 07:08 Hemoglobin 8.2 GM/DL 8.4 GM/DL 10.1 GM/DL (13.0-17.0) (13.0-17.0) (13.0-17.0) Hematocrit 23.6 % 24.9 % 30.7 % (39.0-51.0) (39.0-51.0) (39.0-51.0) Creatinine 0.39 MG/DL 0.36 MG/DL 0.44 MG/DL (0.60-1.30) (0.60-1.30) (0.60-1.30) White Blood Count 12.9 TH/MM3 13.9 TH/MM3 (4.0-11.0) (4.0-11.0) Red Blood Count 2.66 MIL/MM3 3.22 MIL/MM3 (4.50-5.90) (4.50-5.90) Calcium Level 7.5 MG/DL 8.0 MG/DL (8.5-10.1) (8.5-10.1) Neutrophils (%) (Auto) 89.3 % (16.0-70.0) Lymphocytes (%) (Auto) 4.3 % (9.0-44.0) Neutrophils # (Auto) 12.4 TH/MM3 (1.8-7.7) Lymphocytes # (Auto) 0.6 TH/MM3 (1.0-4.8) Carbon Dioxide Level 32.1 MEQ/L (21.0-32.0) Phosphorus Level 1.8 MG/DL (2.5-4.9) Total Protein 6.3 GM/DL (6.4-8.2) Albumin 2.9 GM/DL (3.4-5.0) Test 01/03/17 01/04/17 01/04/17 12:19 05:18 05:19 Vancomycin Level Trough 12.6 MCG/ML (5.0-10.0) Carbon Dioxide Level 34.1 MEQ/L (21.0-32.0) Creatinine 0.37 MG/DL (0.60-1.30) Calcium Level 8.3 MG/DL (8.5-10.1) White Blood Count 12.6 TH/MM3 (4.0-11.0) Red Blood Count 3.04 MIL/MM3 (4.50-5.90) Hemoglobin 9.7 GM/DL (13.0-17.0) Hematocrit 29.1 % (39.0-51.0) Neutrophils (%) (Auto) 88.9 % (16.0-70.0) Lymphocytes (%) (Auto) 5.9 % (9.0-44.0) Neutrophils # (Auto) 11.2 TH/MM3 (1.8-7.7) Lymphocytes # (Auto) 0.7 TH/MM3 (1.0-4.8) PE at Discharge GENERAL: 66-year-old male, disheveled currently resting in bed in no acute distress on nasal cannula SKIN: Warm and dry. No rash HEAD: Atraumatic. Normocephalic. EYES: Pupils equal and round around 3 mm bilaterally and reactive. No scleral icterus. No injection or drainage. ENT: No nasal bleeding or discharge. Mucous membranes pink and moist. NECK: Trachea midline. No JVD. CARDIOVASCULAR: Regular rate and rhythm. S1, S2. No S4. Without murmur RESPIRATORY: Expiratory wheeze appreciated. Diminished breath sounds in the bases left greater than right. Breath sounds equal bilaterally. GASTROINTESTINAL: Abdomen soft, non-tender, nondistended. Active bowel sounds MUSCULOSKELETAL: Extremities without new skin peripheral edema. No obvious deformities. NEUROLOGICAL: Awake and alert but falls asleep easily. No obvious cranial nerve deficits. Motor grossly within normal limits. Five out of 5 muscle strength in the arms and legs. Speech is slow Pt Condition on Discharge: Stable Discharge Disposition: Discharge to SNF Discharge Instructions DIET: Follow Instructions for: Heart Healthy Diet Activities you can perform: Regular-No Restrictions Liss Mcwilliams MD Jan 04, 2017 10:38
[2017-01-04] MEDS ORDERED: CEFT250T8 PO (10:41)
[2017-01-04] MEDS ORDERED: PHARMACY ORDERED LAB XX ONE ×2 (11:45→19:45)
--- NOTE | 2017-01-04 12:49 | MB ---
cc: CHARLOTTE ZARCO DATE OF CONSULTATION: 01/03/2017. REASON FOR CONSULTATION: COPD and respiratory distress. HISTORY OF PRESENT ILLNESS: This is a 66-year-old white male with a longstanding history of COPD who was admitted through the emergency room with hypoxemia, hypercapnia and pneumonia. The patient [facility] from a [facility] facility. He has been oxygen-dependent and also has a longstanding history of hypertension, dyslipidemia and vascular disease. He was having increasing chest congestion and decreasing mental status upon arrival. He had refused nasal cannula and the patient was placed on BiPAP initially but then had to be switched back to oxygen via nasal cannula and presently is on 2 liters of oxygen. The patient is also on nebulized bronchodilators q.4 h and was placed on IV fluids for hydration. His condition has improved since admission. His hemoglobin was low at 8.5 apparently he has had a past history for anemia. The patient denied chest pains. He has a cough. He brings up a little thick mucus. He complains of fatigue as well as leg swelling. PAST MEDICAL HISTORY: His past history has included: 1. Peripheral vascular disease. 2. Chronic benzodiazepines for anxiety. 3. History of hypertension. 4. Dyslipidemia. 5. He has had a hernia repair in the past. 6. Left ankle surgery. 7. Finger surgery. SOCIAL HISTORY/HABITS: The patient was a smoker of up to one-pack per day and has done so for over 35 years. Drinks alcohol occasionally. No history of illicit drug use. ALLERGIES: No drug allergies are listed. MEDICATIONS: 1. Lorazepam 0.5 milligrams PRN. 2. Pepcid 25 milligrams twice a day. 3. Advair Diskus 100/50 one puff twice a day. 4. Crestor 20 milligrams a day. 5. Plavix 75 milligrams daily. 6. Amlodipine 5 milligrams a day. REVIEW OF SYSTEMS: The patient has lost weight. He has leg swelling. Denies headaches or blackouts. He has no chest pain but has cough with expectoration. Epigastric distress and reflux. He has urinary frequency. Denies skin lesions but has joint pains of his extremities. PHYSICAL EXAMINATION: GENERAL: This is a thinly built elderly man who is anxious. Face is plethoric. VITAL SIGNS: Blood pressure 130/70, pulse 110, respirations 24 x 92. HEAD, EYES, EARS, NOSE, THROAT: Head normocephalic. The pupils are reactive. Tongue is dry. Throat is injected. Nasal mucosa edematous. NECK: The neck is supple. No bruits. No thyroid enlargement. No lymphadenopathy. CHEST: Distant breath sounds with expiratory wheezes throughout both lung sanders. Prolonged expirations. HEART: The heart sounds are irregular. S1-S2 with no murmur. No S3. ABDOMEN: Abdomen soft and protuberant. No masses. No organomegaly or tenderness. The bowel sounds are active. EXTREMITIES: Mild edema with diminished pulses. NEUROLOGIC: Reflexes are brisk. No gross motor deficits. Cranial nerves are grossly intact. RECTAL: Rectal exam is deferred. SKIN: No lesions observed. IMPRESSION: 1. COPD with acute exacerbation 2. Acute respiratory failure resolved 3. He has emphysema with chronic bronchitis 4. Basilar pneumonia 5. Hypertension. 6. Hyperlipidemia. PLAN: 1. The patient has been placed on O2 at 2 liters. 2. We will continue Solu-Medrol 40 milligrams IV twice a day. 3. Nebulized DuoNeb solution four times a day. 4. Antibiotic therapy including Zithromax 500 milligrams IV daily will be continued. 5. The patient will be given DuoNeb solution every 6 hours with a nebulizer. 6. He could be transferred to the telemetry unit and pulmonary function studies will be done at the bedside. I will follow the case with you, Dr. Mcwilliams. Thank you for the consultation. MD HIRA Taylor/DARIO /3:53 PM /12:47 PM
--- NOTE | 2017-01-04 12:53 | MB ---
cc: CHARLOTTE ZAMORA DATE OF CONSULTATION 01/03/2017 REASON FOR CONSULTATION COPD and respiratory distress. HISTORY OF PRESENT ILLNESS This is a 65-year-old white male [facility] resident who was brought in from [facility] with a history of hypoxia and a history of severe shortness of breath and decline in his mental status. The patient has O2 at the [facility] and apparently was quite short of breath and had refused to use the oxygen or the meds and then was noted to be hypoxic and was brought to the ER. Upon arrival a chest x-ray showed left lung infiltrate. He was given Solu-Medrol and placed on BiPap initially for hypercapnia and subsequently switched to a nasal cannula. He was started on IV steroids, bronchodilators and then antibiotics and over the past 24 hours his condition has improved. He is now down to a nasal cannula at 4.5 liters and seems to be maintaining his sats over 92. The patient was meeting sepsis criteria with a pneumonia in the left base and was treated for health care-associated pneumonia. He denied any chest pain. He has a cough and brings up whitish-yellow mucus. Denies any fevers or chills. PAST HISTORY 1. History of severe COPD. 2. History of peripheral vascular disease. 3. Hypertension. 4. Dyslipidemia. 5. Benzodiazepine use. PAST SURGICAL HISTORY 1. He has had left ankle surgery. 2. Hernia repair. MED LIST 1. Pepcid 20 mg b.i.d. 2. Advair 100/50 one puff b.i.d. 3. Crestor 20 mg per day. 4. Plavix 75 mg daily. 5. Amlodipine 5 mg daily. 6. Albuterol nebs. HABITS The patient smoked two to three packs per day for over 30 years. Alcohol use moderate FAMILY HISTORY Noncontributory. SYSTEMS REVIEW The patient has lost weight. He has headaches, postnasal drip. He has no leg swelling. She does have some joint pains and lower back pain. Denies urinary symptoms. She has no skin lesions and no calf muscle pains. PHYSICAL EXAMINATION GENERAL: This averagely built elderly man who is mildly dyspneic. VITAL SIGNS: Blood pressure 120/70, pulse 105, respirations 24, temperature 98. HEENT: Head normocephalic. Pupils are reactive. Tongue is moist. Throat is injected. Nasal mucosa edematous. NECK: Supple. No bruits or thyroid enlargement or lymphadenopathy. CHEST: Distant breath sounds with expiratory wheezes. Bilaterally prolonged expirations. HEART: Heart sounds are irregular, S1 and S2. No murmur. ABDOMEN: Soft, protuberant. No masses, no organomegaly or tenderness. Bowel sounds are active. EXTREMITIES: Decreased pulses. Reflexes are 1+ with no gross motor deficits. NEUROLOGIC: Cranial nerves grossly intact. RECTAL: Exam is deferred. SKIN: No lesions. IMPRESSION 1. Hypercapnic respiratory failure, resolving. 2. Basilar pneumonia. 3. Dyslipidemia. 4. Hypertension. 5. Chronic back pain. PLAN The patient has been placed on O2 at 4 liters, nebulized DuoNeb solution added q.i.d. We will taper the Solu-Medrol 40 mg twice daily. Antibiotic therapy will be continued for now and hopefully switch him to oral medications over the next 24-48 hours. Sputum culture is being monitored and we will get a pulmonary function as the bedside oxygen will be titrated down to maintain sats over 92. Symbicort 160/4.5 two puffs twice daily was added as well and a follow-up chest x-ray this week. Thank you Dr. Jiang, for this consultation. Charlotte Zamora MD JVD/TEODORO /12:11 PM /12:42 PM
--- NOTE | 2017-01-04 12:57 | HHI.PR ---
Subjective Remarks He is weak. Cough is less. No chest pain or fever. Objective Vital Signs Date Time Temp Pulse Resp B/P Pulse Ox O2 Delivery O2 Flow Rate FiO2 01/04/17 10:00 89 01/04/17 09:22 98 Nasal Cannula 2.00 01/04/17 08:00 81 01/04/17 08:00 97.5 81 30 133/64 98 01/04/17 06:00 90 01/04/17 04:00 82 01/04/17 04:00 97.9 82 16 126/66 99 01/04/17 02:00 83 01/04/17 00:00 87 01/04/17 00:00 98.7 87 33 160/77 96 01/03/17 22:00 89 01/03/17 20:44 96 21 01/03/17 20:00 98.1 93 35 154/72 98 01/03/17 20:00 93 01/03/17 18:00 87 01/03/17 16:00 82 01/03/17 16:00 98.1 82 24 141/75 100 01/03/17 14:00 94 I/O 01/03/17 01/03/17 01/03/17 01/04/17 01/04/17 01/04/17 07:00 15:00 23:00 07:00 15:00 23:00 Intake Total 250 ml 2090 ml 424 ml Output Total 1900 ml 1125 ml Balance 250 ml 190 ml -701 ml Intake Oral 720 ml IV Total 250 ml 1370 ml 424 ml Output Urine Total 1900 ml 1125 ml # Bowel Movements 2 Result Diagram: 01/04/17 0519 01/04/17 0518 Objective Remarks GENERAL: This is a thinly built elderly man who is anxious. Face is plethoric. HEAD, EYES, EARS, NOSE, THROAT: Head normocephalic. The pupils are reactive. Tongue is dry. Throat is dry. Nasal mucosa edematous. NECK: The neck is supple. No bruits. No thyroid enlargement. No lymphadenopathy. CHEST: Distant breath sounds with expiratory wheezes throughout both lung sanders. Prolonged expirations. HEART: The heart sounds are irregular. S1-S2 with no murmur. No S3. ABDOMEN: Abdomen soft and protuberant. No masses. No organomegaly or tenderness. The bowel sounds are active. EXTREMITIES: Mild edema with diminished pulses. NEUROLOGIC: Reflexes are decreased. Weak legs. Cranial nerves are grossly intact. RECTAL: Rectal exam is deferred. SKIN: No lesions observed. Assessment and Plan Assessment and Plan IMPRESSION: 1. COPD with acute exacerbation 2. Acute respiratory failure resolved 3. He has emphysema with chronic bronchitis 4. Basilar pneumonia 5. Hypertension. 6. Hyperlipidemia. Plan : 1. O2 at 2L. 2. Cont Antibiotics. 3. Solumedrol 40 mg IV bid. 4. Duonebs qid. 5. Cont Symbicort 160/4.5 mcg , 2puffs bid. 6. Transfer to [facility]. Devan Zamora MD Jan 04, 2017 12:57
--- NOTE | 2017-01-04 13:28 | HHI.PR ---
Subjective Remarks Patient in appears in nad, resting in bed. He is satting well on nasal canula. Says she did have a BM. No n/v/d/c. Denies chest pain. No fever or chills. Per nurse he did refuse PT in the morning. Says she feels tired. Objective Vitals Vital Signs Date Time Temp Pulse Resp B/P Pulse Ox O2 Delivery O2 Flow Rate FiO2 01/04/17 10:00 89 01/04/17 09:22 98 Nasal Cannula 2.00 01/04/17 08:00 81 01/04/17 08:00 97.5 81 30 133/64 98 01/04/17 06:00 90 01/04/17 04:00 82 01/04/17 04:00 97.9 82 16 126/66 99 01/04/17 02:00 83 01/04/17 00:00 87 01/04/17 00:00 98.7 87 33 160/77 96 01/03/17 22:00 89 01/03/17 20:44 96 21 01/03/17 20:00 98.1 93 35 154/72 98 01/03/17 20:00 93 01/03/17 18:00 87 01/03/17 16:00 82 01/03/17 16:00 98.1 82 24 141/75 100 01/03/17 14:00 94 I/O 01/03/17 01/03/17 01/03/17 01/04/17 01/04/17 01/04/17 07:00 15:00 23:00 07:00 15:00 23:00 Intake Total 250 ml 2090 ml 424 ml Output Total 1900 ml 1125 ml Balance 250 ml 190 ml -701 ml Intake Oral 720 ml IV Total 250 ml 1370 ml 424 ml Output Urine Total 1900 ml 1125 ml # Bowel Movements 2 Result Diagram: 01/04/17 0519 01/04/17 0518 Imaging Last Impressions Chest X-Ray 01/03/17 0600 Signed Impressions: Service Date/Time: Tuesday, January 03, 2017 03:39 - CONCLUSION: No significant change has occurred. Raj Tavares MD Lower Extremity Ultrasound 12/31/16 0000 Signed Impressions: Service Date/Time: December 08:04 - CONCLUSION: The study is negative for deep venous thrombosis bilateral lower extremity. Chandu Joe MD Objective Remarks GENERAL: 66-year-old male, disheveled currently resting in bed in no acute distress on nasal cannula SKIN: Warm and dry. No rash HEAD: Atraumatic. Normocephalic. EYES: Pupils equal and round around 3 mm bilaterally and reactive. No scleral icterus. No injection or drainage. ENT: No nasal bleeding or discharge. Mucous membranes pink and moist. NECK: Trachea midline. No JVD. CARDIOVASCULAR: Regular rate and rhythm. S1, S2. No S4. Without murmur RESPIRATORY: Expiratory wheeze appreciated. Diminished breath sounds in the bases left greater than right. Breath sounds equal bilaterally. GASTROINTESTINAL: Abdomen soft, non-tender, nondistended. Active bowel sounds MUSCULOSKELETAL: Extremities without new skin peripheral edema. No obvious deformities. NEUROLOGICAL: Awake and alert but falls asleep easily. No obvious cranial nerve deficits. Motor grossly within normal limits. Five out of 5 muscle strength in the arms and legs. Speech is slow A/P Problem List: (1) Anemia ICD Code: D64.9 Status: Acute (2) Hypercarbia ICD Code: R06.89 Status: Acute (3) Sepsis due to pneumonia ICD Code: J18.9 Status: Acute (4) HCAP (healthcare-associated pneumonia) ICD Code: J18.9 Status: Acute (5) COPD (chronic obstructive pulmonary disease) ICD Code: J44.9 Status: Acute (6) Hypertension ICD Code: I10 Status: Acute (7) Dyslipidemia ICD Code: E78.5 Status: Acute (8) extermination supervisor prescription benzodiazepine use ICD Code: Z79.899 Status: Acute (9) Peripheral vascular disease ICD Code: I73.9 Status: Acute (10) Gastroesophageal reflux disease ICD Code: K21.9 Status: Acute (11) Normocytic anemia ICD Code: D64.9 Status: Acute (12) Hyponatremia ICD Code: E87.1 Status: Acute (13) Hyperglycemia ICD Code: R73.9 Status: Acute (14) Leukocytosis ICD Code: D72.829 Status: Acute (15) Constipation ICD Code: K59.00 Status: Acute (16) Hypothermia ICD Code: T68.XXXA Status: Acute Assessment and Plan Chronic benzodiazepine use Acute toxic metabolic encephalopathy likely secondary to underlying illness COPD with exacerbation. Patien thas a long standing history of smoking. Says quit when he came to the hospital. Patient is on Ativan to 0.5 mg every 6 hours as needed for anxiety and also on 1 mg ativan daily scheduled. Acetaminophen for fever [place]/morphine for pain management. Patient says he doesn't have a lung doctor Will consult pulm CV: Peripheral vascular disease Hypertension Dyslipidemia Currently on normal saline at 84 cc an hour. Hemodynamically stable. We'll discontinue On Norvasc 5 mill grams by mouth daily at home. This is been held. Resume when clinically indicated On Crestor 20 mg by mouth daily. This has been resumed. Resp: Acute on chronic hypoxemic Chronic respiratory failure COPD/O2 dependent Left lower lobe infiltrate BiPAP initially due to CO2 retention with respiratory acidosis. Wean to nasal cannula to maintain saturations greater than equal to 92% Bronchodilator therapy every 4 hours and as needed Continue Advair 100/50 one inhalation twice a day - hospital substitution with Symbicort Solu-Medrol 40 mg IV every 12 hours See ID for antibiotics Follow-up chest x-ray in a.m. GI: Chronic constipation Gastroesophageal reflux disease Advance diet as tolerated. Protonix twice a day for GI prophylaxis. On Pepcid 20 mg twice a day at nursing facility Colace/as needed Senokot for bowel regimen : Gonzalez will be placed for accurate I's and O's in a critically ill patient Endo: Sliding-scale insulin with Accu-Cheks to maintain euglycemia. Low protocol. Before meals and at bedtime. Renal: Creatinine currently within normal limits. Accurate I's and output Monitor urine output Heme: Leukocytosis Normocytic anemia Monitor CBC daily. Monitor trends. Transfuse 2 units PRBCs since admission. Recheck hemoglobin after transfusion was 8.2 No signs of hemolysis. Hemoccult-negative ID: Healthcare associated pneumonia Receive Zosyn, Rocephin and azithromycin the ED. Will schedule vancomycin cefepime and Zithromax day #3 Pertinent cultures Blood cultures 2, UA, urine Legionella and pneumococcal antigens and influenza no growth MSK: Low back pain Physcical deconditioning PT/OT evaluate and treat FEN: Hyponatremia Replace electrolytes as clinically indicated Access - Utilize peripheral IV. Central line if indicated Prophylaxis - GI - Protonix - DVT - SCD/heparin will resume in a.m. Discussed code status > Full code. Palliative care on consult. Discussed with the patient, nurse, wound care. Problem Qualifiers (1) Anemia: Qualified Code: D64.89 - Anemia due to other cause, not classified (2) COPD (chronic obstructive pulmonary disease): Qualified Code: J43.9 - Pulmonary emphysema, unspecified emphysema type (3) Hypertension: Qualified Code: I10 - Essential hypertension (4) Gastroesophageal reflux disease: Qualified Code: K21.9 - Gastroesophageal reflux disease, esophagitis presence not specified (5) Leukocytosis: Qualified Code: D72.829 - Leukocytosis, unspecified type (6) Constipation: Qualified Code: K59.00 - Constipation, unspecified constipation type (7) Hypothermia: Qualified Code: T68.XXXA - Hypothermia, initial encounter Liss Mcwilliams MD Jan 04, 2017 13:28
[2017-01-05] VITALS (14 sets, daily range): BP systolic 121–159; BP diastolic 57–82; PULSE 77–92; RESP 17–32; TEMP 97.7–98.8; O2SAT 94–99
[2017-01-05] MEDS: CEFEPIME INJ 2,000 MG in SODIUM CHLORIDE 0.9% INJ 100 ML IV SCH ×3 (00:47→17:14)
[2017-01-05] MEDS: VANCOMYCIN INJ 900 MG in SODIUM CHLOR 0.9% 250 ML INJ 250 ML IV SCH ×3 (02:53→20:59)
[2017-01-05] MEDS: CHLORHEXIDINE GLUCONATE 2 % 1 PACK (2 CLOTHS) TOP SCH (02:53)
[2017-01-05] MEDS: INSULIN NovoLIN REGULAR SUPPLEMENTAL SCALE SQ SCH ×4 (05:14→20:59)
[2017-01-05] MEDS: AZITHROMYCIN INJ 500 MG in SODIUM CHLOR 0.9% 250 ML INJ 250 ML IV SCH (05:14)
--- NOTE | 2017-01-05 07:00 | RADRPT ---
EXAM DATE/TIME: 01/05/2017 06:00 [place] COMPARISON: CHEST SINGLE AP, January 03, 2017, 3:39. INDICATIONS : Pneumonia. Short of breath. MEDICAL HISTORY : Chronic obstructive pulmonary disease. SURGICAL HISTORY : None. ENCOUNTER: Subsequent ACUITY: 4 - 6 days PAIN SCORE: Non-responsive. LOCATION: Bilateral chest FINDINGS: Left basilar consolidation persists with mild right basilar airspace disease as well. Heart size with in normal limits. No pneumothorax. Probable small left effusion. CONCLUSION: 1. Stable left basilar consolidation and small effusion compared with January 03. Luis Norton MD on January 05, 2017 at 6:58 Board Certified Radiologist. This report was verified electronically.
[2017-01-05] MEDS: SODIUM CHLORIDE 0.9% FLUSH 5 ML FLUSH IV FLUSH SCH ×2 (08:12→21:00)
[2017-01-05] MEDS: ASPIRIN 81 MG CHEW TAB CHEW SCH (08:12)
[2017-01-05] MEDS: BUDESONIDE-FORMOTEROL 160/4.5 MCG INHALER INH SCH ×2 (08:12→21:00)
[2017-01-05] MEDS: ARTIFICIAL TEARS OPTH SOLN 15 ML BTL EACH EYE SCH ×3 (08:12→17:14)
[2017-01-05] MEDS: PANTOPRAZOLE SOD 40 MG DELAYED RELEASE TAB PO SCH ×2 (08:13→20:59)
[2017-01-05] MEDS: methylPREDNISolone SOD SUCC 40 MG/1 ML VIAL IV PUSH SCH (08:13)
[2017-01-05] MEDS: CLOPIDOGREL 75 MG TAB PO SCH (08:13)
[2017-01-05] MEDS: ATORVASTATIN 40 MG TAB PO SCH (08:13)
[2017-01-05] MEDS: DOCUSATE SODIUM 100 MG CAP PO SCH ×2 (09:00→21:00)
--- NOTE | 2017-01-05 12:35 | HHI.PR ---
Subjective Remarks Remains weak. . No chest pain or fever. Objective Vital Signs Date Time Temp Pulse Resp B/P Pulse Ox O2 Delivery O2 Flow Rate FiO2 01/05/17 10:00 83 01/05/17 09:51 94 Nasal Cannula 2.00 01/05/17 08:00 84 01/05/17 08:00 98.2 83 30 127/57 98 01/05/17 06:00 84 01/05/17 04:00 77 01/05/17 04:00 98.1 77 17 159/74 98 01/05/17 02:00 81 01/05/17 00:00 98.2 80 23 128/70 95 01/05/17 00:00 80 01/04/17 22:00 85 01/04/17 21:11 98 Nasal Cannula 2.00 01/04/17 20:00 98.7 87 27 140/67 97 01/04/17 20:00 87 01/04/17 18:00 85 01/04/17 16:00 95 01/04/17 16:00 98.8 95 19 155/72 97 01/04/17 14:00 87 I/O 01/04/17 01/04/17 01/04/17 01/05/17 01/05/17 01/05/17 07:00 15:00 23:00 07:00 15:00 23:00 Intake Total 424 ml 1157 ml 185 ml 618 ml Output Total 1125 ml 1875 ml 400 ml 2050 ml Balance -701 ml -718 ml -215 ml -1432 ml Intake Oral 625 ml 240 ml IV Total 424 ml 532 ml 185 ml 378 ml Output Urine Total 1125 ml 1875 ml 400 ml 2050 ml # Bowel Movements 3 1 Result Diagram: 01/04/17 0519 01/04/17 0518 Objective Remarks GENERAL: This is a thinly built elderly man who is anxious. Face is plethoric. HEAD, EYES, EARS, NOSE, THROAT: Head normocephalic. The pupils are reactive. Tongue is dry. Throat is dry. Nasal mucosa edematous. NECK: The neck is supple. No bruits. No thyroid enlargement. No lymphadenopathy. CHEST: Distant breath sounds with expiratory wheezes throughout both lung sanders. Prolonged expirations. HEART: The heart sounds are irregular. S1-S2 with no murmur. No S3. ABDOMEN: Abdomen soft and protuberant. No masses. No organomegaly or tenderness. The bowel sounds are active. EXTREMITIES: Mild edema with diminished pulses. NEUROLOGIC: Reflexes are decreased. Weak legs. Cranial nerves are grossly intact. RECTAL: Rectal exam is deferred. SKIN: No lesions observed. Assessment and Plan Assessment and Plan IMPRESSION: 1. COPD with acute exacerbation 2. Acute respiratory failure resolved 3. He has emphysema with chronic bronchitis 4. Basilar pneumonia 5. Hypertension. 6. Hyperlipidemia. 7. Deconditioning. Plan : 1. O2 at 2L. 2. Cont Antibiotics. 3. D/C Solumedrol 4. Duonebs qid. 5. Cont Symbicort 160/4.5 mcg , 2puffs bid. 6. Add Prednisone 20 mg bid. 7. BMP in am. Devan Zamora MD Jan 05, 2017 12:35
--- NOTE | 2017-01-05 13:52 | HHI.PR ---
Subjective Remarks Seen earlier today. Patient with sob at baseline, sitting in bed, says he feels tired. No fever or chills. No cough. Objective Vitals Vital Signs Date Time Temp Pulse Resp B/P Pulse Ox O2 Delivery O2 Flow Rate FiO2 01/05/17 12:00 89 01/05/17 12:00 97.7 89 28 139/76 97 01/05/17 10:00 83 01/05/17 09:51 94 Nasal Cannula 2.00 01/05/17 08:00 84 01/05/17 08:00 98.2 83 30 127/57 98 01/05/17 06:00 84 01/05/17 04:00 77 01/05/17 04:00 98.1 77 17 159/74 98 01/05/17 02:00 81 01/05/17 00:00 98.2 80 23 128/70 95 01/05/17 00:00 80 01/04/17 22:00 85 01/04/17 21:11 98 Nasal Cannula 2.00 01/04/17 20:00 98.7 87 27 140/67 97 01/04/17 20:00 87 01/04/17 18:00 85 01/04/17 16:00 95 01/04/17 16:00 98.8 95 19 155/72 97 01/04/17 14:00 87 I/O 01/04/17 01/04/17 01/04/17 01/05/17 01/05/17 01/05/17 07:00 15:00 23:00 07:00 15:00 23:00 Intake Total 424 ml 1157 ml 185 ml 618 ml Output Total 1125 ml 1875 ml 400 ml 2050 ml Balance -701 ml -718 ml -215 ml -1432 ml Intake Oral 625 ml 240 ml IV Total 424 ml 532 ml 185 ml 378 ml Output Urine Total 1125 ml 1875 ml 400 ml 2050 ml # Bowel Movements 3 1 Result Diagram: 01/04/1751801/04/1718 Imaging Last Impressions Chest X-Ray 01/05/17 06 Signed Impressions: Service Date/Time: Thursday, January 05, 2017 06:00 - CONCLUSION: 1. Stable left basilar consolidation and small effusion compared with January 03. Luis Norton MD Lower Extremity Ultrasound 12/31/16 0000 Signed Impressions: Service Date/Time: December 08:04 - CONCLUSION: The study is negative for deep venous thrombosis bilateral lower extremity. Chandu Joe MD Objective Remarks GENERAL: 66-year-old male, disheveled currently resting in bed in no acute distress on nasal cannula SKIN: Warm and dry. No rash HEAD: Atraumatic. Normocephalic. EYES: Pupils equal and round around 3 mm bilaterally and reactive. No scleral icterus. No injection or drainage. ENT: No nasal bleeding or discharge. Mucous membranes pink and moist. NECK: Trachea midline. No JVD. CARDIOVASCULAR: Regular rate and rhythm. S1, S2. No S4. Without murmur RESPIRATORY: Expiratory wheeze appreciated. Diminished breath sounds in the bases left greater than right. Breath sounds equal bilaterally. GASTROINTESTINAL: Abdomen soft, non-tender, nondistended. Active bowel sounds MUSCULOSKELETAL: Extremities without new skin peripheral edema. No obvious deformities. NEUROLOGICAL: Awake and alert but falls asleep easily. No obvious cranial nerve deficits. Motor grossly within normal limits. Five out of 5 muscle strength in the arms and legs. Speech is slow A/P Problem List: (1) Anemia ICD Code: D64.9 Status: Acute (2) Hypercarbia ICD Code: R06.89 Status: Acute (3) Sepsis due to pneumonia ICD Code: J18.9 Status: Acute (4) HCAP (healthcare-associated pneumonia) ICD Code: J18.9 Status: Acute (5) COPD (chronic obstructive pulmonary disease) ICD Code: J44.9 Status: Acute (6) Hypertension ICD Code: I10 Status: Acute (7) Dyslipidemia ICD Code: E78.5 Status: Acute (8) terminologist prescription benzodiazepine use ICD Code: Z79.899 Status: Acute (9) Peripheral vascular disease ICD Code: I73.9 Status: Acute (10) Gastroesophageal reflux disease ICD Code: K21.9 Status: Acute (11) Normocytic anemia ICD Code: D64.9 Status: Acute (12) Hyponatremia ICD Code: E87.1 Status: Acute (13) Hyperglycemia ICD Code: R73.9 Status: Acute (14) Leukocytosis ICD Code: D72.829 Status: Acute (15) Constipation ICD Code: K59.00 Status: Acute (16) Hypothermia ICD Code: T68.XXXA Status: Acute Assessment and Plan Chronic benzodiazepine use Acute toxic metabolic encephalopathy likely secondary to underlying illness COPD with exacerbation. Patiisaiah perezs a long standing history of smoking. Says quit when he came to the hospital. Patient is on Ativan to 0.5 mg every 6 hours as needed for anxiety and also on 1 mg ativan daily scheduled. Acetaminophen for fever [place]/morphine for pain management. Patient says he doesn't have a lung doctor Consult pulm, seen by Dr Zamora appreciate recommendations. Continue symbicort, duonebs, prednisone. Appreciate pulm input. CV: Peripheral vascular disease Hypertension Dyslipidemia Currently on normal saline at 84 cc an hour. Hemodynamically stable. We'll discontinue On Norvasc 5 mill grams by mouth daily at home. This is been held. Resume when clinically indicated On Crestor 20 mg by mouth daily. This has been resumed. Resp: Acute on chronic hypoxemic Chronic respiratory failure COPD/O2 dependent Left lower lobe infiltrate BiPAP initially due to CO2 retention with respiratory acidosis. Wean to nasal cannula to maintain saturations greater than equal to 92% Bronchodilator therapy every 4 hours and as needed Continue Advair 100/50 one inhalation twice a day - hospital substitution with Symbicort Solu-Medrol 40 mg IV every 12 hours tapered , current;ly on prednisone See ID for antibiotics Follow-up chest x-ray in a.m. GI: Chronic constipation Gastroesophageal reflux disease Advance diet as tolerated. Protonix twice a day for GI prophylaxis. On Pepcid 20 mg twice a day at nursing facility Colace/as needed Senokot for bowel regimen : Gonzalez will be placed for accurate I's and O's in a critically ill patient Endo: Sliding-scale insulin with Accu-Cheks to maintain euglycemia. Low protocol. Before meals and at bedtime. Renal: Creatinine currently within normal limits. Accurate I's and output Monitor urine output Heme: Leukocytosis Normocytic anemia Monitor CBC daily. Monitor trends. Transfuse 2 units PRBCs since admission. Recheck hemoglobin after transfusion was 8.2 No signs of hemolysis. Hemoccult-negative ID: Healthcare associated pneumonia Receive Zosyn, Rocephin and azithromycin the ED. Will schedule vancomycin cefepime and Zithromax day #3 Pertinent cultures Blood cultures 2, UA, urine Legionella and pneumococcal antigens and influenza no growth MSK: Low back pain Physcical deconditioning PT/OT evaluate and treat FEN: Hyponatremia Replace electrolytes as clinically indicated Access - Utilize peripheral IV. Central line if indicated Prophylaxis - GI - Protonix - DVT - SCD/heparin will resume in a.m. Discussed code status > Full code. Palliative care on consult. Discussed with the patient, nurse, wound care. Problem Qualifiers (1) Anemia: Qualified Code: D64.89 - Anemia due to other cause, not classified (2) COPD (chronic obstructive pulmonary disease): Qualified Code: J43.9 - Pulmonary emphysema, unspecified emphysema type (3) Hypertension: Qualified Code: I10 - Essential hypertension (4) Gastroesophageal reflux disease: Qualified Code: K21.9 - Gastroesophageal reflux disease, esophagitis presence not specified (5) Leukocytosis: Qualified Code: D72.829 - Leukocytosis, unspecified type (6) Constipation: Qualified Code: K59.00 - Constipation, unspecified constipation type (7) Hypothermia: Qualified Code: T68.XXXA - Hypothermia, initial encounter Liss Mcwilliams MD Jan 05, 2017 13:52
--- NOTE | 2017-01-05 16:56 | HHI.HCPN ---
Reason for visit a. To assist with evaluation and management of symptoms including: dyspnea, weakness, fatigue. b. To assist medical decision maker(s) with: better understanding of current medical conditions; weighing benefits/burdens of medical treatment options; making medical treatment decisions. . Subjective/Interval History Patient seen and examined in ICU. No family at bedside. Patient is sitting in bed, awake and alert, appears to be breathing more comfortably today. He remembers me from visit on 01/04/17. Reviewed that I spoke with his son Marco ( [facility]) via telephone to provide medical update after my visit yesterday. I reviewed my conversation with Marco regarding his feelings on patient's code status, patient agrees that he would want NO CODE. He states that he does not want to be kept alive by machines. Lengthy conversation with patient regarding recent decline, respiratory status and general debility. We reviewed continuing aggressive care versus transition to comfort focused care. Dr. Mcwilliams indicates the patient told her yesterday that he would not want additional therapy/rehab. Patient remains undecided in this regard at this point. I've encouraged him to speak with his sons regarding overall goals of care, continued aggressive care versus transition to comfort measures. We discussed briefly the option of hospice. He indicates that he will speak with his sons and agreed to speak with palliative care again on 01/06/17. Afebrile. Vital signs stable. Remains tachypneic. On oxygen via nasal cannula. No new labs or cultures. Chest x-ray stable left basilar consolidation and small effusion. . Family/friend interactions No family at bedside. . Advance Directives Living Will: Never completed Health Care Surrogate: Copy in medical record Durable Power of Concrete Pointer: Never completed Advance Directive Specifics Date completed: 01/04/17 Health Care Surrogate(s): Patient completed designation of [facility] naming his son, Marco Swan at [facility]. . Significant change in goals: NO CODE (DNR/DNI) elected per pt. For now patient desires continued aggressive care short of NO CODE. He has agreed to speak with palliative care again after he has the chance to speak with his children regarding continued aggressive care versus transition to comfort. He is not yet ready to make this decision today. . Objective Vital Signs Date Time Temp Pulse Resp B/P Pulse Ox O2 Delivery O2 Flow Rate FiO2 01/05/17 16:00 87 01/05/17 16:00 98.3 87 31 133/82 99 01/05/17 14:00 92 01/05/17 12:00 89 01/05/17 12:00 97.7 89 28 139/76 97 01/05/17 10:00 83 01/05/17 09:51 94 Nasal Cannula 2.00 01/05/17 08:00 84 01/05/17 08:00 98.2 83 30 127/57 98 01/05/17 06:00 84 01/05/17 04:00 77 01/05/17 04:00 98.1 77 17 159/74 98 01/05/17 02:00 81 01/05/17 00:00 98.2 80 23 128/70 95 01/05/17 00:00 80 01/04/17 22:00 85 01/04/17 21:11 98 Nasal Cannula 2.00 01/04/17 20:00 98.7 87 27 140/67 97 01/04/17 20:00 87 01/04/17 18:00 85 Intake & Output 01/05/17 01/05/17 07:00 19:00 Intake Total 803 ml 1188 ml Output Total 2450 ml 1327 ml Balance -1647 ml -139 ml Intake Oral 240 ml 550 ml IV Total 563 ml 638 ml Output Urine Total 2450 ml 1325 ml Stool Total 2 ml # Bowel Movements 1 Physical Exam CONSTITUTIONAL/GENERAL: This is a thin, frail patient, in no acute distress. TUBES/LINES/DRAINS: NC, PIV x2 on right, SCDs, multipodus boots. SKIN: No jaundice, rashes, or lesions. Ecchymoses on upper extremities. Peripheral vascular changes all extremities. Extremities cool to touch. Cyanosis fingers. EYES: Pupils equal and round and reactive. No scleral icterus. No injection or drainage. ENT: Hearing grossly normal. Nose without bleeding or purulent drainage. Throat without visible erythema, exudates, masses, or lesions. CARDIOVASCULAR: Irregular. No JVD. RESPIRATORY/CHEST: Symmetric, labored respirations at rest. Scattered crackles. Weak non-productive cough noted. GASTROINTESTINAL: Abdomen soft, non-tender, nondistended. No guarding. Bowel sounds present. GENITOURINARY: Without palpable bladder distension. MUSCULOSKELETAL: Extremities with cyanosis hands. NEUROLOGICAL: Awake and alert. Follows commands. Moves all extremities. PSYCHIATRIC: anxiety due to dyspnea. . Diagnostic Tests Laboratory Laboratory Tests Test 01/03/17 01/03/17 01/04/17 01/04/17 07:08 12:19 05:18 05:19 White Blood Count 13.9 TH/MM3 12.6 TH/MM3 (4.0-11.0) (4.0-11.0) Red Blood Count 3.22 MIL/MM3 3.04 MIL/MM3 (4.50-5.90) (4.50-5.90) Hemoglobin 10.1 GM/DL 9.7 GM/DL (13.0-17.0) (13.0-17.0) Hematocrit 30.7 % 29.1 % (39.0-51.0) (39.0-51.0) Mean Corpuscular Volume 95.2 FL 95.8 FL (80.0-100.0) (80.0-100.0) Mean Corpuscular Hemoglobin 31.2 PG 31.8 PG (27.0-34.0) (27.0-34.0) Mean Corpuscular Hemoglobin 32.8 % 33.2 % Concent (32.0-36.0) (32.0-36.0) Red Cell Distribution Width 15.5 % 15.4 % (11.6-17.2) (11.6-17.2) Platelet Count 231 TH/MM3 215 TH/MM3 (150-450) (150-450) Mean Platelet Volume 7.3 FL 7.6 FL (7.0-11.0) (7.0-11.0) Neutrophils (%) (Auto) 89.3 % 88.9 % (16.0-70.0) (16.0-70.0) Lymphocytes (%) (Auto) 4.3 % 5.9 % (9.0-44.0) (9.0-44.0) Monocytes (%) (Auto) 6.3 % (0.0-8.0) 5.1 % (0.0-8.0) Eosinophils (%) (Auto) 0.0 % (0.0-4.0) 0.0 % (0.0-4.0) Basophils (%) (Auto) 0.1 % (0.0-2.0) 0.1 % (0.0-2.0) Neutrophils # (Auto) 12.4 TH/MM3 11.2 TH/MM3 (1.8-7.7) (1.8-7.7) Lymphocytes # (Auto) 0.6 TH/MM3 0.7 TH/MM3 (1.0-4.8) (1.0-4.8) Monocytes # (Auto) 0.9 TH/MM3 0.6 TH/MM3 (0-0.9) (0-0.9) Eosinophils # (Auto) 0.0 TH/MM3 0.0 TH/MM3 (0-0.4) (0-0.4) Basophils # (Auto) 0.0 TH/MM3 0.0 TH/MM3 (0-0.2) (0-0.2) CBC Comment DIFF FINAL AUTO DIFF Differential Comment AUTO DIFF CONFIRMED Sodium Level 144 MEQ/L 143 MEQ/L (136-145) (136-145) Potassium Level 3.6 MEQ/L 3.9 MEQ/L (3.5-5.1) (3.5-5.1) Chloride Level 106 MEQ/L 103 MEQ/L (98-107) (98-107) Carbon Dioxide Level 32.1 MEQ/L 34.1 MEQ/L (21.0-32.0) (21.0-32.0) Anion Gap 6 MEQ/L (5-15) 6 MEQ/L (5-15) Blood Urea Nitrogen 15 MG/DL (7-18) 13 MG/DL (7-18) Creatinine 0.44 MG/DL 0.37 MG/DL (0.60-1.30) (0.60-1.30) Estimat Glomerular Filtration 193 ML/MIN 236 ML/MIN Rate (>89) (>89) Random Glucose 104 MG/DL 106 MG/DL (74-106) (74-106) Calcium Level 8.0 MG/DL 8.3 MG/DL (8.5-10.1) (8.5-10.1) Phosphorus Level 1.8 MG/DL (2.5-4.9) Magnesium Level 1.8 MG/DL (1.5-2.5) Total Bilirubin 1.0 MG/DL (0.2-1.0) Aspartate Amino Transf 31 U/L (15-37) (AST/SGOT) Alanine Aminotransferase 59 U/L (12-78) (ALT/SGPT) Alkaline Phosphatase 51 U/L (45-117) Total Protein 6.3 GM/DL (6.4-8.2) Albumin 2.9 GM/DL (3.4-5.0) Vancomycin Level Trough 12.6 MCG/ML (5.0-10.0) Platelet Estimate NORMAL (NORMAL) Platelet Morphology Comment NORMAL (NORMAL) Test 01/04/17 20:53 Vancomycin Level Trough 19.9 MCG/ML (5.0-10.0) Result Diagram: 01/04/17 0519 01/04/17 0518 Microbiology Microbiology Date/Time Procedure Status Source Growth 01/02/17 08:15 Influenza Types A,B Antigen (CE) - Final Complete Nasal Washing NEGATIVE FOR FLU A AND B ANTIGEN.... 01/01/17 00:30 Stool Occult Blood (CE) - Final Complete Stool Stool HEMOCCULT NEGATIVE . Imaging Last Impressions Chest X-Ray 01/05/17 0600 Signed Impressions: Service Date/Time: Thursday, January 05, 2017 06:00 - CONCLUSION: 1. Stable left basilar consolidation and small effusion compared with January 03. Luis Norton MD Lower Extremity Ultrasound 12/31/16 0000 Signed Impressions: Service Date/Time: December 08:04 - CONCLUSION: The study is negative for deep venous thrombosis bilateral lower extremity. Chandu Joe MD . Assessment and Plan Disease Oriented Problem List: (1) shelter prescription benzodiazepine use (2) Dyslipidemia (3) Hypertension (4) Peripheral vascular disease (5) Leukocytosis (6) HCAP (healthcare-associated pneumonia) (7) COPD (chronic obstructive pulmonary disease) (8) Anemia (9) Hypercarbia (10) Sepsis due to pneumonia Symptom Scale: (1) Weakness 0-10 Scale: Unable to quantify (2) Dyspnea 0-10 Scale: 7 (3) Fatigue 0-10 Scale: Unable to quantify (4) Anxiety 0-10 Scale: 4 Pertinent Non-Medical Issues Psychosocial: . Spiritual: None. Legal:Patient is currently capacitated to make his own decisions. He completed designation of [facility] naming his son, Marco Swan at [facility] should he become incapacitated. Ethical issues impacting care: None. . Important Contacts * Marco Swan, son: [phone] * Luis Armando Chong, brother: [phone] . Prognosis Overall prognosis appears poor. . Code Status: No Code Plan * Patient is currently capacitated to make his own decisions. He completed designation of [facility] naming his son, Marco Swan at [facility] should he become incapacitated. Original on chart to go with patient. Copy sent to HIM to be scanned into EMR. * NO CODE (DNR/DNI) per pt wishes. * 01/05/17 - For now patient desires continued aggressive care short of NO CODE. He has agreed to speak with palliative care again after he has the chance to speak with his children regarding continued aggressive care versus transition to comfort. He is not yet ready to make this decision today. * SYMPTOMS: Dyspnea: on oxygen via NC. Visibly SOB at rest. PRN Lorazepam available. Anxiety: improved with PRN Lorazepam during my visit. * Palliative care will continue to assist with symptom management and further clarification of treatment goals. . Time Spent Total Floor Time (mins): 40 Face to Face Time (mins): 25 >50% Counseling/Coord of Care: Yes Attestation To help prompt me to consider important information that might be impacting today's encounter and assessment, information from prior notes written by myself or my colleagues may have been "brought forward" into today's note. My signature on this note, however, is an attestation that I personally performed the exam, history, and/or decision-making noted today, and, unless otherwise indicated, the interactions with patient, family, and staff as well as the review of records all occurred today. I also attest that the listed assessment and stated plan reflect my best clinical judgment today based on the combination of historical information, prior notes, and today's exam/ interactions. When time spent is documented, it refers only to time spent today by the signer, or if indicated, combined time spent today by collaborating physician/nurse practitioner. ENRRIQUE VIDALES Jan 05, 2017 16:56
[2017-01-05] MEDS ORDERED: PHARMACY ORDERED LAB XX ONE (19:45)
[2017-01-05] MEDS: RESP: ALBUTEROL 2.5 MG/IPRATROPIUM 0.5 MG NEB (PRN) INH (20:21)
[2017-01-05] MEDS: predniSONE 20 MG TAB PO SCH (20:59)
[2017-01-06] VITALS (9 sets, daily range): BP systolic 122–175; BP diastolic 60–78; PULSE 80–95; RESP 20–28; TEMP 97.1–98.2; O2SAT 95–99
[2017-01-06] MEDS: CEFEPIME INJ 2,000 MG in SODIUM CHLORIDE 0.9% INJ 100 ML IV SCH ×3 (02:26→17:52)
[2017-01-06] MEDS: VANCOMYCIN INJ 900 MG in SODIUM CHLOR 0.9% 250 ML INJ 250 ML IV SCH ×3 (02:27→21:37)
[2017-01-06] MEDS: CHLORHEXIDINE GLUCONATE 2 % 1 PACK (2 CLOTHS) TOP SCH (04:00)
[2017-01-06] MEDS: AZITHROMYCIN INJ 500 MG in SODIUM CHLOR 0.9% 250 ML INJ 250 ML IV SCH (06:13)
[2017-01-06] MEDS: INSULIN NovoLIN REGULAR SUPPLEMENTAL SCALE SQ SCH ×4 (06:16→21:00)
[2017-01-06] MEDS: BUDESONIDE-FORMOTEROL 160/4.5 MCG INHALER INH SCH ×2 (09:00→21:00)
[2017-01-06] MEDS: ARTIFICIAL TEARS OPTH SOLN 15 ML BTL EACH EYE SCH ×3 (09:00→17:50)
[2017-01-06] MEDS: ATORVASTATIN 40 MG TAB PO SCH (09:28)
[2017-01-06] MEDS: predniSONE 20 MG TAB PO SCH ×2 (09:28→21:37)
[2017-01-06] MEDS: PANTOPRAZOLE SOD 40 MG DELAYED RELEASE TAB PO SCH ×2 (09:28→21:36)
[2017-01-06] MEDS: ASPIRIN 81 MG CHEW TAB CHEW SCH (09:28)
[2017-01-06] MEDS: SODIUM CHLORIDE 0.9% FLUSH 5 ML FLUSH IV FLUSH SCH ×2 (09:29→21:37)
[2017-01-06] MEDS: DOCUSATE SODIUM 100 MG CAP PO SCH ×2 (09:29→21:00)
[2017-01-06] MEDS: CLOPIDOGREL 75 MG TAB PO SCH (09:29)
--- NOTE | 2017-01-06 11:59 | HHI.PR ---
Subjective Remarks In the bed, says she feels much better today. Stil with sob. Less wheezing. + whitish sputum production less cough. No fever or chills. No n/v/d/c. Objective Vitals Vital Signs Date Time Temp Pulse Resp B/P Pulse Ox O2 Delivery O2 Flow Rate FiO2 01/06/17 11:14 97 Nasal Cannula 2.00 01/06/17 08:03 97.3 84 26 128/75 98 01/06/17 05:41 97.2 95 28 130/60 95 01/06/17 00:42 140/67 01/06/17 00:06 97.3 85 26 175/69 95 01/05/17 22:00 86 01/05/17 20:21 97 Nasal Cannula 2.00 01/05/17 20:00 98.8 90 32 121/70 96 01/05/17 20:00 90 01/05/17 18:00 86 01/05/17 16:00 87 01/05/17 16:00 98.3 87 31 133/82 99 01/05/17 14:00 92 01/05/17 12:00 89 01/05/17 12:00 97.7 89 28 139/76 97 I/O 01/05/17 01/05/17 01/05/17 01/06/17 01/06/17 01/06/17 07:00 15:00 23:00 07:00 15:00 23:00 Intake Total 618 ml 1188 ml 466 ml 120 ml Output Total 2050 ml 1327 ml 900 ml 1350 ml Balance -1432 ml -139 ml -434 ml -1230 ml Intake Oral 240 ml 550 ml 342 ml 120 ml IV Total 378 ml 638 ml 124 ml Output Urine Total 2050 ml 1325 ml 900 ml 1350 ml Stool Total 2 ml # Bowel Movements 1 1 Result Diagram: 01/04/17 0519 01/06/17 0723 Imaging Last Impressions Chest X-Ray 01/05/17 0600 Signed Impressions: Service Date/Time: Thursday, January 05, 2017 06:00 - CONCLUSION: 1. Stable left basilar consolidation and small effusion compared with January 03. Luis Norton MD Lower Extremity Ultrasound 12/31/16 0000 Signed Impressions: Service Date/Time: December 08:04 - CONCLUSION: The study is negative for deep venous thrombosis bilateral lower extremity. Chandu Joe MD Objective Remarks GENERAL: 66-year-old male, disheveled currently resting in bed in no acute distress on nasal cannula SKIN: Warm and dry. No rash HEAD: Atraumatic. Normocephalic. EYES: Pupils equal and round around 3 mm bilaterally and reactive. No scleral icterus. No injection or drainage. ENT: No nasal bleeding or discharge. Mucous membranes pink and moist. NECK: Trachea midline. No JVD. CARDIOVASCULAR: Regular rate and rhythm. S1, S2. No S4. Without murmur RESPIRATORY: Expiratory wheeze appreciated. Diminished breath sounds in the bases left greater than right. Breath sounds equal bilaterally. GASTROINTESTINAL: Abdomen soft, non-tender, nondistended. Active bowel sounds MUSCULOSKELETAL: Extremities without new skin peripheral edema. No obvious deformities. NEUROLOGICAL: Awake and alert but falls asleep easily. No obvious cranial nerve deficits. Motor grossly within normal limits. Five out of 5 muscle strength in the arms and legs. Speech is slow A/P Problem List: (1) Anemia ICD Code: D64.9 Status: Acute (2) Hypercarbia ICD Code: R06.89 Status: Acute (3) Sepsis due to pneumonia ICD Code: J18.9 Status: Acute (4) HCAP (healthcare-associated pneumonia) ICD Code: J18.9 Status: Acute (5) COPD (chronic obstructive pulmonary disease) ICD Code: J44.9 Status: Acute (6) Hypertension ICD Code: I10 Status: Acute (7) Dyslipidemia ICD Code: E78.5 Status: Acute (8) correction prescription benzodiazepine use ICD Code: Z79.899 Status: Acute (9) Peripheral vascular disease ICD Code: I73.9 Status: Acute (10) Gastroesophageal reflux disease ICD Code: K21.9 Status: Acute (11) Normocytic anemia ICD Code: D64.9 Status: Acute (12) Hyponatremia ICD Code: E87.1 Status: Acute (13) Hyperglycemia ICD Code: R73.9 Status: Acute (14) Leukocytosis ICD Code: D72.829 Status: Acute (15) Constipation ICD Code: K59.00 Status: Acute (16) Hypothermia ICD Code: T68.XXXA Status: Acute Assessment and Plan Chronic benzodiazepine use Acute toxic metabolic encephalopathy likely secondary to underlying illness COPD with exacerbation. Diana ferguson a long standing history of smoking. Says quit when he came to the hospital. Patient is on Ativan to 0.5 mg every 6 hours as needed for anxiety and also on 1 mg ativan daily scheduled. Acetaminophen for fever [place]/morphine for pain management. Patient says he doesn't have a lung doctor Consult pulm, seen by Dr Zamora appreciate recommendations. Continue symbicort, duonebs, prednisone. Appreciate pulm input. CV: Peripheral vascular disease Hypertension Dyslipidemia Currently on normal saline at 84 cc an hour. Hemodynamically stable. We'll discontinue On Norvasc 5 mill grams by mouth daily at home. This is been held. Resume when clinically indicated On Crestor 20 mg by mouth daily. This has been resumed. Resp: Acute on chronic hypoxemic Chronic respiratory failure COPD/O2 dependent Left lower lobe infiltrate BiPAP initially due to CO2 retention with respiratory acidosis. Wean to nasal cannula to maintain saturations greater than equal to 92% Bronchodilator therapy every 4 hours and as needed Continue Advair 100/50 one inhalation twice a day - hospital substitution with Symbicort Solu-Medrol 40 mg IV every 12 hours tapered , current;ly on prednisone See ID for antibiotics Follow-up chest x-ray in a.m. GI: Chronic constipation Gastroesophageal reflux disease Advance diet as tolerated. Protonix twice a day for GI prophylaxis. On Pepcid 20 mg twice a day at nursing facility Colace/as needed Senokot for bowel regimen : Gonzalez will be placed for accurate I's and O's in a critically ill patient Endo: Sliding-scale insulin with Accu-Cheks to maintain euglycemia. Low protocol. Before meals and at bedtime. Renal: Creatinine currently within normal limits. Accurate I's and output Monitor urine output Heme: Leukocytosis Normocytic anemia Monitor CBC daily. Monitor trends. Transfuse 2 units PRBCs since admission. Recheck hemoglobin after transfusion was 8.2 No signs of hemolysis. Hemoccult-negative ID: Healthcare associated pneumonia Receive Zosyn, Rocephin and azithromycin the ED. Will schedule vancomycin cefepime and Zithromax day #3 Pertinent cultures Blood cultures 2, UA, urine Legionella and pneumococcal antigens and influenza no growth MSK: Low back pain Physcical deconditioning PT/OT evaluate and treat FEN: Hyponatremia Replace electrolytes as clinically indicated Access - Utilize peripheral IV. Central line if indicated Prophylaxis - GI - Protonix - DVT - SCD/heparin will resume in a.m. Discussed code status > Full code. Palliative care on consult. Discussed with the patient, nurse. Patient improved, plan to DC to SNF. Family appealed the discharge. Discussed with the case management. Discussed with the patient, nurse, family at bedside. Problem Qualifiers (1) Anemia: Qualified Code: D64.89 - Anemia due to other cause, not classified (2) COPD (chronic obstructive pulmonary disease): Qualified Code: J43.9 - Pulmonary emphysema, unspecified emphysema type (3) Hypertension: Qualified Code: I10 - Essential hypertension (4) Gastroesophageal reflux disease: Qualified Code: K21.9 - Gastroesophageal reflux disease, esophagitis presence not specified (5) Leukocytosis: Qualified Code: D72.829 - Leukocytosis, unspecified type (6) Constipation: Qualified Code: K59.00 - Constipation, unspecified constipation type (7) Hypothermia: Qualified Code: T68.XXXA - Hypothermia, initial encounter Liss Mcwilliams MD Jan 06, 2017 11:59
--- NOTE | 2017-01-06 12:28 | HHI.HCPN ---
Reason for visit a. To assist with evaluation and management of symptoms including: dyspnea, weakness, fatigue. b. To assist medical decision maker(s) with: better understanding of current medical conditions; weighing benefits/burdens of medical treatment options; making medical treatment decisions. . Subjective/Interval History Patient seen and examined in room. No family at bedside. Patient is sitting in bed, awake and alert, dyspneic at rest. He remembers me from prior visits. I attempted to speak with him in follow up from conversation 01/05/17. He tells me he spoke with his children, he does not want to talk about DC planning with me today. He reports he wants to take it one step at a time and right now he needs to breathe. He has some anxiety, reports he just got his medication does not want something for anxiety today. He reports he was unable to stand with PT only able to sit on the side of the bed. Afebrile. Vital signs stable. Remains tachypneic. On oxygen via nasal cannula. Creatinine 0.4. No new imaging. . Family/friend interactions Left message for son, Marco ([facility]) to provide medical update and review my conversations with patient. Awaiting return call. Spoke with son via telephone. Medical update provided. We discussed likely possible decline in coming days or months. He is going to speak with patient to see if he wants to go to rehab or if he is ready to consider hospice. He feels they should at least try rehab again given recent clinical improvement during this admission. . Advance Directives Living Will: Never completed Health Care Surrogate: Copy in medical record Durable Power of Diplomatic Officer: Never completed Advance Directive Specifics Date completed: 01/04/17 Health Care Surrogate(s): Patient completed designation of [facility] naming his sonMarco at [facility]. . Significant change in goals: NO CODE. Continue aggressive care short of NO CODE for now. . Objective Vital Signs Date Time Temp Pulse Resp B/P Pulse Ox O2 Delivery O2 Flow Rate FiO2 01/06/17 11:14 97 Nasal Cannula 2.00 01/06/17 08:03 97.3 84 26 128/75 98 01/06/17 05:41 97.2 95 28 130/60 95 01/06/17 00:42 140/67 01/06/17 00:06 97.3 85 26 175/69 95 01/05/17 22:00 86 01/05/17 20:21 97 Nasal Cannula 2.00 01/05/17 20:00 98.8 90 32 121/70 96 01/05/17 20:00 90 01/05/17 18:00 86 01/05/17 16:00 87 01/05/17 16:00 98.3 87 31 133/82 99 01/05/17 14:00 92 Intake & Output 01/06/17 01/06/17 07:00 19:00 Intake Total 364 ml Output Total 1700 ml Balance -1336 ml Intake Oral 240 ml IV Total 124 ml Output Urine Total 1700 ml Physical Exam CONSTITUTIONAL/GENERAL: This is a thin, frail patient, in no acute distress. TUBES/LINES/DRAINS: NC, PIV x2 on right, SCDs, multipodus boots. SKIN: No jaundice, rashes, or lesions. Ecchymoses on upper extremities. Peripheral vascular changes all extremities. Extremities cool to touch. Cyanosis fingers. EYES: Pupils equal and round and reactive. No scleral icterus. No injection or drainage. CARDIOVASCULAR: Irregular. No JVD. RESPIRATORY/CHEST: Symmetric, labored respirations at rest. Scattered crackles. Weak non-productive cough noted. GASTROINTESTINAL: Abdomen soft, non-tender, nondistended. No guarding. Bowel sounds present. GENITOURINARY: Without palpable bladder distension. MUSCULOSKELETAL: Extremities with cyanosis hands. NEUROLOGICAL: Awake and alert. Follows commands. Moves all extremities. PSYCHIATRIC: anxiety due to dyspnea. . Diagnostic Tests Laboratory Laboratory Tests Test 01/04/17 01/04/17 01/04/17 01/05/17 05:18 05:19 20:53 20:34 Sodium Level 143 MEQ/L (136-145) Potassium Level 3.9 MEQ/L (3.5-5.1) Chloride Level 103 MEQ/L (98-107) Carbon Dioxide Level 34.1 MEQ/L (21.0-32.0) Anion Gap 6 MEQ/L (5-15) Blood Urea Nitrogen 13 MG/DL (7-18) Creatinine 0.37 MG/DL (0.60-1.30) Estimat Glomerular Filtration 236 ML/MIN Rate (>89) Random Glucose 106 MG/DL (74-106) Calcium Level 8.3 MG/DL (8.5-10.1) White Blood Count 12.6 TH/MM3 (4.0-11.0) Red Blood Count 3.04 MIL/MM3 (4.50-5.90) Hemoglobin 9.7 GM/DL (13.0-17.0) Hematocrit 29.1 % (39.0-51.0) Mean Corpuscular Volume 95.8 FL (80.0-100.0) Mean Corpuscular Hemoglobin 31.8 PG (27.0-34.0) Mean Corpuscular Hemoglobin 33.2 % Concent (32.0-36.0) Red Cell Distribution Width 15.4 % (11.6-17.2) Platelet Count 215 TH/MM3 (150-450) Mean Platelet Volume 7.6 FL (7.0-11.0) Neutrophils (%) (Auto) 88.9 % (16.0-70.0) Lymphocytes (%) (Auto) 5.9 % (9.0-44.0) Monocytes (%) (Auto) 5.1 % (0.0-8.0) Eosinophils (%) (Auto) 0.0 % (0.0-4.0) Basophils (%) (Auto) 0.1 % (0.0-2.0) Neutrophils # (Auto) 11.2 TH/MM3 (1.8-7.7) Lymphocytes # (Auto) 0.7 TH/MM3 (1.0-4.8) Monocytes # (Auto) 0.6 TH/MM3 (0-0.9) Eosinophils # (Auto) 0.0 TH/MM3 (0-0.4) Basophils # (Auto) 0.0 TH/MM3 (0-0.2) CBC Comment AUTO DIFF Differential Comment AUTO DIFF CONFIRMED Platelet Estimate NORMAL (NORMAL) Platelet Morphology Comment NORMAL (NORMAL) Vancomycin Level Trough 19.9 MCG/ML 17.9 MCG/ML (5.0-10.0) (5.0-10.0) Test 01/06/17 07:23 Creatinine 0.40 MG/DL (0.60-1.30) Estimat Glomerular Filtration 216 ML/MIN Rate (>89) Result Diagram: 01/04/17 0519 01/06/17 0723 Microbiology Microbiology Date/Time Procedure Status Source Growth 01/02/17 08:15 Influenza Types A,B Antigen (CE) - Final Complete Nasal Washing NEGATIVE FOR FLU A AND B ANTIGEN.... . Imaging Last Impressions Chest X-Ray 01/05/17 0600 Signed Impressions: Service Date/Time: Thursday, January 05, 2017 06:00 - CONCLUSION: 1. Stable left basilar consolidation and small effusion compared with January 03. Luis Norton MD Lower Extremity Ultrasound 12/31/16 0000 Signed Impressions: Service Date/Time: December 08:04 - CONCLUSION: The study is negative for deep venous thrombosis bilateral lower extremity. Chandu Joe MD . Assessment and Plan Disease Oriented Problem List: (1) detention prescription benzodiazepine use (2) Dyslipidemia (3) Hypertension (4) Peripheral vascular disease (5) Leukocytosis (6) HCAP (healthcare-associated pneumonia) (7) COPD (chronic obstructive pulmonary disease) (8) Anemia (9) Hypercarbia (10) Sepsis due to pneumonia Symptom Scale: (1) Weakness 0-10 Scale: Unable to quantify (2) Dyspnea 0-10 Scale: 7 (3) Fatigue 0-10 Scale: Unable to quantify (4) Anxiety 0-10 Scale: 2 Pertinent Non-Medical Issues Psychosocial: . Spiritual: None. Legal:Patient is currently capacitated to make his own decisions. He completed designation of [facility] naming his son, Marco Swan at [facility] should he become incapacitated. Ethical issues impacting care: None. . Important Contacts * Marco Swan, son: [phone] * Luis Armando Chong, brother: [phone] . Prognosis Overall prognosis appears poor. . Code Status: No Code Plan * Patient is currently capacitated to make his own decisions. He completed designation of [facility] naming his sonMarco at [facility] should he become incapacitated. Original on chart to go with patient. Copy sent to HIM to be scanned into EMR. * NO CODE (DNR/DNI) per pt wishes. * 01/06/17 - For now patient desires continued aggressive care short of NO CODE. HE does not want to talk about plan upon DC today. Left message for sonMarco ([facility]) to return call for medical update and review of discussions with pt. Spoke with Marco - continue aggressive care for now - he will speak with patient more. * SYMPTOMS: Dyspnea: on oxygen via NC. Visibly SOB at rest. PRN Lorazepam available. Anxiety: improved with PRN Lorazepam during my visit. * Palliative care will continue to assist with symptom management and further clarification of treatment goals. . Attestation To help prompt me to consider important information that might be impacting today's encounter and assessment, information from prior notes written by myself or my colleagues may have been "brought forward" into today's note. My signature on this note, however, is an attestation that I personally performed the exam, history, and/or decision-making noted today, and, unless otherwise indicated, the interactions with patient, family, and staff as well as the review of records all occurred today. I also attest that the listed assessment and stated plan reflect my best clinical judgment today based on the combination of historical information, prior notes, and today's exam/ interactions. When time spent is documented, it refers only to time spent today by the signer, or if indicated, combined time spent today by collaborating physician/nurse practitioner. ENRRIQUE VIDALES Jan 06, 2017 12:27
--- NOTE | 2017-01-06 18:07 | HHI.PR ---
Subjective Remarks More alert and eating today. No chest pain or fever. has leg weakness and On PT. Objective Vital Signs Date Time Temp Pulse Resp B/P Pulse Ox O2 Delivery O2 Flow Rate FiO2 01/06/17 16:05 98.2 88 26 122/66 96 01/06/17 12:19 97.1 80 24 128/78 97 01/06/17 11:14 97 Nasal Cannula 2.00 01/06/17 08:03 97.3 84 26 128/75 98 01/06/17 05:41 97.2 95 28 130/60 95 01/06/17 00:42 140/67 01/06/17 00:06 97.3 85 26 175/69 95 01/05/17 22:00 86 01/05/17 20:21 97 Nasal Cannula 2.00 01/05/17 20:00 98.8 90 32 121/70 96 01/05/17 20:00 90 I/O 01/05/17 01/05/17 01/05/17 01/06/17 01/06/17 01/06/17 07:00 15:00 23:00 07:00 15:00 23:00 Intake Total 618 ml 1188 ml 466 ml 120 ml 360 ml Output Total 2050 ml 1327 ml 900 ml 1350 ml Balance -1432 ml -139 ml -434 ml -1230 ml 360 ml Intake Oral 240 ml 550 ml 342 ml 120 ml 360 ml IV Total 378 ml 638 ml 124 ml Output Urine Total 2050 ml 1325 ml 900 ml 1350 ml Stool Total 2 ml # Voids 4 # Bowel Movements 1 1 2 Result Diagram: 01/04/17 0519 01/06/17 0723 Objective Remarks GENERAL: This is a thinly built elderly man who is anxious. alert. HEAD, EYES, EARS, NOSE, THROAT: Head normocephalic. The pupils are reactive. Tongue is dry. Throat is dry. Nasal mucosa clear NECK: The neck is supple. No bruits. No thyroid enlargement. No lymphadenopathy. CHEST: Distant breath sounds with expiratory wheezes throughout both lung sanders. Prolonged expirations.Occ crackles at bases. HEART: The heart sounds are irregular. S1-S2 with no murmur. No S3. ABDOMEN: Abdomen soft and protuberant. No masses. No organomegaly or tenderness. The bowel sounds are active. EXTREMITIES: Mild edema with diminished pulses. NEUROLOGIC: Reflexes are decreased. Weak legs. Cranial nerves are grossly intact. RECTAL: Rectal exam is deferred. SKIN: No lesions observed. Assessment and Plan Assessment and Plan IMPRESSION: 1. COPD with acute exacerbation 2. Acute respiratory failure resolved 3. He has emphysema with chronic bronchitis 4. Basilar pneumonia 5. Hypertension. 6. Hyperlipidemia. 7. Deconditioning. Plan : 1. O2 at 2L. 2. Cont Antibiotics. 3. D/C IV Zithromax 4. Duonebs qid. 5. Cont Symbicort 160/4.5 mcg , 2puffs bid. 6. Prednisone 20 mg bid. 7. PT evaluation to ambulate Devan Zamora MD Jan 06, 2017 18:07
[2017-01-06] MEDS: RESP: ALBUTEROL 2.5 MG/IPRATROPIUM 0.5 MG NEB (PRN) INH (22:05)
[2017-01-07] VITALS (7 sets, daily range): BP systolic 115–143; BP diastolic 60–75; PULSE 85–102; RESP 20–22; TEMP 96.3–98.4; O2SAT 93–97
[2017-01-07] MEDS: CEFEPIME INJ 2,000 MG in SODIUM CHLORIDE 0.9% INJ 100 ML IV SCH ×2 (01:53→08:39)
[2017-01-07] MEDS: CHLORHEXIDINE GLUCONATE 2 % 1 PACK (2 CLOTHS) TOP SCH (04:00)
[2017-01-07] MEDS: VANCOMYCIN INJ 900 MG in SODIUM CHLOR 0.9% 250 ML INJ 250 ML IV SCH (05:07)
[2017-01-07] MEDS: INSULIN NovoLIN REGULAR SUPPLEMENTAL SCALE SQ SCH ×2 (06:02→11:58)
[2017-01-07] MEDS: predniSONE 20 MG TAB PO SCH (08:39)
[2017-01-07] MEDS: PANTOPRAZOLE SOD 40 MG DELAYED RELEASE TAB PO SCH (08:39)
[2017-01-07] MEDS: ATORVASTATIN 40 MG TAB PO SCH (08:39)
[2017-01-07] MEDS: ASPIRIN 81 MG CHEW TAB CHEW SCH (08:39)
[2017-01-07] MEDS: DOCUSATE SODIUM 100 MG CAP PO SCH (08:39)
[2017-01-07] MEDS: CLOPIDOGREL 75 MG TAB PO SCH (08:40)
[2017-01-07] MEDS: BUDESONIDE-FORMOTEROL 160/4.5 MCG INHALER INH SCH (08:40)
[2017-01-07] MEDS: ARTIFICIAL TEARS OPTH SOLN 15 ML BTL EACH EYE SCH ×2 (08:41→13:00)
[2017-01-07] MEDS: SODIUM CHLORIDE 0.9% FLUSH 5 ML FLUSH IV FLUSH SCH (08:46)
[2017-01-07] MEDS ORDERED: AZITHROMYCIN 250 MG TAB PO SCH (09:00)
--- NOTE | 2017-01-07 09:18 | HHI.PR ---
Subjective Remarks Follow up COPD. The patient states that he feels okay today. Still having a little shortness of breath. Denies chest pain. Objective Vitals Vital Signs Date Time Temp Pulse Resp B/P Pulse Ox O2 Delivery O2 Flow Rate FiO2 01/07/17 04:00 96.3 85 20 143/75 97 01/07/17 00:00 97.0 88 20 115/69 95 01/06/17 22:05 98 Nasal Cannula 2.00 01/06/17 20:00 97.8 80 20 124/75 99 01/06/17 16:05 98.2 88 26 122/66 96 01/06/17 12:19 97.1 80 24 128/78 97 01/06/17 11:14 97 Nasal Cannula 2.00 I/O 01/06/17 01/06/17 01/06/17 01/07/17 01/07/17 01/07/17 07:00 15:00 23:00 07:00 15:00 23:00 Intake Total 120 ml 360 ml 240 ml 120 ml Output Total 1350 ml 500 ml Balance -1230 ml 360 ml 240 ml -380 ml Intake Oral 120 ml 360 ml 240 ml 120 ml Output Urine Total 1350 ml 500 ml # Voids 4 0 # Bowel Movements 2 0 1 Result Diagram: 01/04/17 0519 01/06/17 0723 Imaging Last Impressions Chest X-Ray 01/05/17 0600 Signed Impressions: Service Date/Time: Thursday, January 05, 2017 06:00 - CONCLUSION: 1. Stable left basilar consolidation and small effusion compared with January 03. Luis Norton MD Lower Extremity Ultrasound 12/31/16 0000 Signed Impressions: Service Date/Time: December 08:04 - CONCLUSION: The study is negative for deep venous thrombosis bilateral lower extremity. Chandu Joe MD Objective Remarks General: Elderly male in no acute distress. Heart: Regular rate and rhythm. No murmur. Lungs: Scattered rhonchi. Breathing is nonlabored. Abdomen: Soft, nontender, nondistended. Extremities: No lower extremity edema. Psych: Alert, somewhat confused. Procedures None Urinary Catheter: No Vascular Central Line Catheter: No A/P Problem List: (1) Anemia ICD Code: D64.9 Status: Acute (2) Hypercarbia ICD Code: R06.89 Status: Acute (3) Sepsis due to pneumonia ICD Code: J18.9 Status: Acute (4) HCAP (healthcare-associated pneumonia) ICD Code: J18.9 Status: Acute (5) COPD (chronic obstructive pulmonary disease) ICD Code: J44.9 Status: Acute (6) Hypertension ICD Code: I10 Status: Acute (7) Dyslipidemia ICD Code: E78.5 Status: Acute (8) [facility] prescription benzodiazepine use ICD Code: Z79.899 Status: Acute (9) Peripheral vascular disease ICD Code: I73.9 Status: Acute (10) Gastroesophageal reflux disease ICD Code: K21.9 Status: Acute (11) Normocytic anemia ICD Code: D64.9 Status: Acute (12) Hyponatremia ICD Code: E87.1 Status: Acute (13) Hyperglycemia ICD Code: R73.9 Status: Acute (14) Leukocytosis ICD Code: D72.829 Status: Acute (15) Constipation ICD Code: K59.00 Status: Acute (16) Hypothermia ICD Code: T68.XXXA Status: Acute Assessment and Plan 1. COPD exacerbation, acute on chronic hypoxemic respiratory failure: Appreciate pulmonology recommendations. Continue Symbicort, DuoNeb, prednisone. Continue supplemental oxygen. 2. Acute toxic metabolic encephalopathy: Improved. 3. Peripheral vascular disease, dyslipidemia: Continue statin, aspirin, Plavix. 4. Hypertension: BP well controlled. 5. Healthcare associated pneumonia: Continue antibiotics. (Cefepime day #8, Vancomycin day #8, Azithromycin day #8). Azithromycin stop date 01/09/17. Can stop Cefepime, Vancomycin today (UpToDate recommends 7 day course of antibiotics if there is clinical improvement). 6. Chronic constipation: Continue Senokot, Colace. 7. GERD: Continue Protonix. 8. Normocytic anemia: Patient has received 2 units PRBCs since admission. Hemoccult negative. 9. Physical deconditioning: Continue physical therapy, occupational therapy. 10. DVT prophylaxis: SCDs, heparin. Discharge Planning Discharge to SNF today. Patient/family had appealed the discharge to Medicare, but discharge was upheld. Problem Qualifiers (1) Anemia: Qualified Code: D64.89 - Anemia due to other cause, not classified (2) COPD (chronic obstructive pulmonary disease): Qualified Code: J43.9 - Pulmonary emphysema, unspecified emphysema type (3) Hypertension: Qualified Code: I10 - Essential hypertension (4) Gastroesophageal reflux disease: Qualified Code: K21.9 - Gastroesophageal reflux disease, esophagitis presence not specified (5) Leukocytosis: Qualified Code: D72.829 - Leukocytosis, unspecified type (6) Constipation: Qualified Code: K59.00 - Constipation, unspecified constipation type (7) Hypothermia: Qualified Code: T68.XXXA - Hypothermia, initial encounter Issac Larose MD Jan 07, 2017 09:18
--- NOTE | 2017-01-07 09:28 | HHI.DCPOC ---
Discharge Care Plan Diagnosis: (1) HCAP (healthcare-associated pneumonia) (2) COPD (chronic obstructive pulmonary disease) (3) [facility] prescription benzodiazepine use (4) Gastroesophageal reflux disease (5) Hypertension (6) Peripheral vascular disease (7) Dyslipidemia (8) Anxiety (9) Normocytic anemia Goals to Promote Your Health * To prevent worsening of your condition and complications * To maintain your health at the optimal level Directions to Meet Your Goals Take your medications as prescribed Follow your dietary instruction Follow activity as directed Keep your appointments as scheduled Take your immunizations and boosters as scheduled If your symptoms worsen call your PCP, if no PCP go to Urgent Care Center or Emergency Room Smoking is Dangerous to Your Health. Avoid second hand smoke Call the 24-hour hour crisis hotline for domestic abuse at Issac Larose MD Jan 07, 2017 09:28
[2017-01-07] MEDS ORDERED: ZITH250T PO (09:38)
--- NOTE | 2017-01-07 14:15 | HHI.HCPN ---
10am: Call from sonMarco to request medical update. Update given. Plan for tentative DC today. Reviewed plan to send pt with [place] DNR order, he agrees. Met with patient, he signed [place] DNR order. Signed by Dr. Larose. On chart to send with Designation of [facility] to SNF with pt upon DC. ENRRIQUE VIDALES Jan 07, 2017 14:15
--- NOTE | 2017-01-07 17:08 | HHI.PR ---
Subjective Remarks Feels better . No chest pain or fever.Still has leg weakness and On PT. Objective Vital Signs Date Time Temp Pulse Resp B/P Pulse Ox O2 Delivery O2 Flow Rate FiO2 01/07/17 15:10 98.4 102 21 122/65 97 01/07/17 11:00 97.0 93 20 134/71 97 01/07/17 10:00 93 Nasal Cannula 2.00 01/07/17 08:00 96.7 97 22 124/73 97 01/07/17 07:15 96.7 97 20 124/73 97 01/07/17 04:00 96.3 85 20 143/75 97 01/07/17 00:00 97.0 88 20 115/69 95 01/06/17 22:05 98 Nasal Cannula 2.00 01/06/17 20:00 97.8 80 20 124/75 99 I/O 01/06/17 01/06/17 01/06/17 01/07/17 01/07/17 01/07/17 07:00 15:00 23:00 07:00 15:00 23:00 Intake Total 120 ml 360 ml 240 ml 120 ml Output Total 1350 ml 500 ml Balance -1230 ml 360 ml 240 ml -380 ml Intake Oral 120 ml 360 ml 240 ml 120 ml Output Urine Total 1350 ml 500 ml # Voids 4 0 # Bowel Movements 2 0 1 Result Diagram: 01/04/17 0519 01/06/17 0723 Objective Remarks GENERAL: This is a thinly built elderly man who is anxious. alert. HEAD, EYES, EARS, NOSE, THROAT: Head normocephalic. The pupils are reactive. Tongue is clear. Throat is dry. Nasal mucosa clear NECK: The neck is supple. No bruits. No thyroid enlargement. No lymphadenopathy. CHEST: Distant breath sounds with expiratory wheezes throughout both lung sanders. Prolonged expirations.Occ crackles at bases. HEART: The heart sounds are irregular. S1-S2 with no murmur. No S3. ABDOMEN: Abdomen soft and protuberant. No masses. No organomegaly or tenderness. The bowel sounds are active. EXTREMITIES: Mild edema with diminished pulses. NEUROLOGIC: Reflexes are decreased. Weak legs. Cranial nerves are grossly intact. RECTAL: Rectal exam is deferred. SKIN: No lesions observed. Assessment and Plan Assessment and Plan IMPRESSION: 1. COPD with acute exacerbation 2. Acute respiratory failure resolved 3. He has emphysema with chronic bronchitis 4. Basilar pneumonia 5. Hypertension. 6. Hyperlipidemia. 7. Deconditioning. Plan : 1. O2 at 2L.arrange O2 at rehab 2. Cont Antibiotics. for 1 week 3. CBC,BMP. 4. Duonebs qid. 5. Cont Symbicort 160/4.5 mcg , 2puffs bid. 6. Prednisone 10 mg bid. 7. PT evaluation to ambulate Code Status: Intubation Devan Zamora MD Jan 07, 2017 17:08
[2017-01-07] MEDS ORDERED: predniSONE 10 MG TAB PO SCH (21:00)
[2017-01-08] MEDS ORDERED: PHARMACY ORDERED LAB XX ONE (03:45)
--- NOTE | 2017-02-14 17:42 | HHI.DS ---
Discharge Summary Admission Date Dec 31, 2016 at 06:54 Discharge Date: Jan 07, 2017 Admitting Diagnosis Sepsis (PNA), Hypercarbia, Anemia (1) Anemia ICD Code: D64.9 (2) Hypercarbia ICD Code: R06.89 (3) Sepsis due to pneumonia ICD Code: J18.9 (4) HCAP (healthcare-associated pneumonia) ICD Code: J18.9 (5) COPD (chronic obstructive pulmonary disease) ICD Code: J44.9 (6) Hypertension ICD Code: I10 (7) Dyslipidemia ICD Code: E78.5 (8) longterm prescription benzodiazepine use ICD Code: Z79.899 (9) Peripheral vascular disease ICD Code: I73.9 (10) Gastroesophageal reflux disease ICD Code: K21.9 (11) Normocytic anemia ICD Code: D64.9 (12) Hyponatremia ICD Code: E87.1 (13) Hyperglycemia ICD Code: R73.9 (14) Leukocytosis ICD Code: D72.829 (15) Constipation ICD Code: K59.00 (16) Hypothermia ICD Code: T68.XXXA Procedures None Brief History - From Admission 66 years old male. Date of admission 12/31/2016. Resident of [facility]. Past medical history includes COPD/oxygen dependent, hypertension, peripheral vascular disease and dyslipidemia. He presents to [facility] with a history of shortness of breath times several days and decreasing mental status. Per ED physician, his mentation is slightly worse than normal. EMS further reports of blood sugar 116 heart rate of 100 and a BP of 122/84. En route to the ER he refused nebs and nasal cannula. At this facility, retaining CO2. Chest x-ray reveals left lower lobe infiltrate. Started on nasal cannula 3 L. Received bronchodilator therapy along with 125 mg Solu-Medrol 1. Currently on [facility]je[facility] Last Impressions Chest X-Ray 01/05/17 0600 Signed Impressions: Service Date/Time: Thursday, January 05, 2017 06:00 - CONCLUSION: 1. Stable left basilar consolidation and small effusion compared with January 03. Luis Norton MD Lower Extremity Ultrasound 12/31/16 0000 Signed Impressions: Service Date/Time: December 08:04 - CONCLUSION: The study is negative for deep venous thrombosis bilateral lower extremity. Chandu Joe MD PE at Discharge General: Elderly male in no acute distress. Heart: Regular rate and rhythm. No murmur. Lungs: Scattered rhonchi. Breathing is nonlabored. Abdomen: Soft, nontender, nondistended. Extremities: No lower extremity edema. Psych: Alert, somewhat confused. Hospital Course The patient was admitted to the critical care service for management of altered mental status, respiratory failure. He required BiPAP. He was noted to be anemic and received transfusion of 2 units PRBCs. He improved clinically and was transitioned out of the intensive care unit. Pulmonology was consulted. He was continued on supplemental oxygen, IV steroids, antibiotics, and bronchodilators. Palliative care was consulted. The patient made his wishes known that his CODE STATUS was DO NOT RESUSCITATE. Arrangements were made for discharge to assisted facility. Pt Condition on Discharge: Stable Discharge Disposition: Discharge to SNF Discharge Time: > 30 minutes Discharge Instructions DIET: Follow Instructions for: Heart Healthy Diet Activities you can perform: Regular-No Restrictions Follow up Referrals: PCP Follow-up - 3-5 Days Pulmonology - 3-5 Days New Medications: Ipratropium HFA 12.9 GM Inh (Atrovent HFA 12.9 GM Inh) 17 Mcg/Act Aer 2 PUFF INH QID Shortness of Breath #1 Ref 0 INHALER Prednisone (21) 10 mg tab Dose Pack (Prednisone (21) 10 mg tab Dose Pack) 10 Mg Pack 10 MG PO DIRECTED Inflammation #1 Ref 0 DSPK Azithromycin (Zithromax) 250 Mg Tab 250 MG PO DAILY Infection #2 Ref 0 TAB Continued Medications: Albuterol Neb (Albuterol Neb) 2.5 Mg/3 Ml Neb 2.5 MG NEB QID NEB Breathing Treatment #60 Ref 0 NEBULE Amlodipine (Amlodipine) 5 Mg Tab 5 MG PO DAILY Blood Pressure Management #30 Ref 0 TAB Aspirin (Aspirin Low Dose) 81 Mg Chew 81 MG CHEW DAILY Ref 0 TAB Bisacodyl (Qc Gentle Laxative) 10 Mg Sup Clopidogrel (Clopidogrel) 75 Mg Tab 75 MG PO DAILY Blood Clot Prevention #30 Ref 0 TAB Docusate Sodium (Docusate Sodium) 100 Mg Cap 100 MG PO BID Prevent Constipation #60 Ref 0 CAP Famotidine (Famotidine) 20 Mg Tab 20 MG PO BID #60 Ref 0 TAB Fluticasone-Salmeterol Inh (Advair Diskus Inh) 100-50 Mcg/Blist Aer 2 PUFF INH BID Rinse mouth after use. Asthma Management #1 Ref 0 INHALER Lorazepam (Ativan) 1 Mg Tab 1 MG PO DAILY PRN ANXIETY AND/OR AGITATION Ref 0 TAB Lorazepam (Lorazepam) 0.5 Mg Tab 0.5 MG PO Q6H PRN ANXIETY #10 Ref 0 TAB (This prescription has been renewed) Magnesium Citrate Liq (Citroma Liq) 300 Ml Liq 300 ML PO ONCE #1 Ref 0 BOTTLE Rosuvastatin (Rosuvastatin) 20 Mg Tab 20 MG PO DAILY Cholesterol Management #30 Ref 0 TAB Sodium Phosphates (Enema Kiyzn-Pc-Eca) 1 Cecile Cecile ([Epsom Salts]) XX LAST NIGHT Ref 0 Discontinued Medications: Methylprednisolone Sod Succinate Inj (Methylprednisolone Sod Succinate Inj) 125 Mg Inj 125 MG IM ONCE #1 Ref 0 VIAL Issac Larose MD Feb 14, 2017 17:42
== END 2017-01-07 18:26 | DRG 871 ==
LOC: NEPC 04:38 → NEDA 06:54 → HIMN 14:10 → N05A 01-05 23:45
PROVIDERS: ADMIT Family Medicine; ATTEND Family Medicine
PROC: 30253N1 (ICD-10-PCS; principal; 2016-12-31)
PROC: 5A09457 Assistance with Respiratory Ventilation, 24-96 Consecutive Hours, Continuous Positive Airway Pressure (ICD-10-PCS; 2016-12-31)
DX: A41.9 Sepsis, unspecified organism (principal); J18.9 Pneumonia, unspecified organism; J96.21 Acute and chronic respiratory failure with hypoxia; E87.2 Acidosis; G92 Toxic encephalopathy; J96.22 Acute and chronic respiratory failure with hypercapnia; J44.0 Chronic obstructive pulmonary disease with (acute) lower respiratory infection; J44.1 Chronic obstructive pulmonary disease with (acute) exacerbation; E87.1 Hypo-osmolality and hyponatremia; D64.9 Anemia, unspecified; E78.5 Hyperlipidemia, unspecified; G89.29 Other chronic pain; I10 Essential (primary) hypertension; I73.9 Peripheral vascular disease, unspecified; K21.9 Gastro-esophageal reflux disease without esophagitis; K59.09 Other constipation; T68.XXXA Hypothermia, initial encounter; F41.9 Anxiety disorder, unspecified; Y95 Nosocomial condition; Z51.5 Encounter for palliative care; Z66 Do not resuscitate; F17.200 Nicotine dependence, unspecified, uncomplicated; Z79.02 Long term (current) use of antithrombotics/antiplatelets; Z99.81 Dependence on supplemental oxygen; Z79.899 Other long term (current) drug therapy
CPT/HCPCS: 36430; 36600; 71010; 76937; 80048; 80053; 80076; 80202; 81001; 82140; 82272; 82550; 82565; 82805; 82948; 83010; 83605; 83615; 83735; 84100; 84484; 85014; 85018; 85025; 85027; 85044; 85060; 85610; 85730; 86850; 86900; 86901; 86920; 87040; 87086; 87449; 87641; 87804; 93005; 93970; 94002; 94003; 94150; 94640; 94664; 96365; C9113; J0456; J0692; J0696; J1644; J2543; J2920; J3370; J7030; J7050; J7512; P9016; P9047